=== PATIENT | male | born 1945 | race Caucasian/White ===

== ENCOUNTER 2016-11-14 23:27 | Inpatient (IN) | payer MEDICARE, BC ==
[2016-11-15] MEDS ORDERED: clonazePAM 0.5 MG TAB PO PRN (02:17)
[2016-11-15] MEDS ORDERED: ONDANSETRON 4 MG/2 ML VIAL IVP PRN (02:17)
[2016-11-15] MEDS: MORPHINE SULFATE 2 MG/ML SYRINGE IVP PRN ×3 (04:13→23:31)
[2016-11-15] MEDS: NITROGLYCERIN SL TABS 0.4 MG TAB SUBLINGUAL PRN (04:23)
[2016-11-15] MEDS ORDERED: METOPROLOL SUCCINATE (ER) 100 MG TAB.ER.24H PO STA (04:42)
[2016-11-15] MEDS ORDERED: amLODIPine 10 MG TAB PO STA (04:43)
[2016-11-15 08:14] LABS: Anion Gap 12 mmol/L; Blood Urea Nitrogen 14 mg/dL (9-20); Calcium 8.5 mg/dL (8.4-10.2); Carbon Dioxide 27 mmol/L (22-30); Chloride 108 mmol/L (98-107); Glucose 131 mg/dL (74-99); Non-African American GFR(MDRD) >60 (>60 ml/min/1.73 sqM); Potassium 3.7 mmol/L (3.5-5.1); Sodium 147 mmol/L (137-145)
[2016-11-15 08:27] LABS: Creatine Kinase 41 U/L (55-170)
[2016-11-15 08:39] LABS: Creatine Kinase MB 0.5 ng/mL (0.0-2.4); Troponin I <0.012 ng/mL (0.000-0.034)
[2016-11-15] MEDS: ASPIRIN 81 MG CHEW PO SCH (08:39)
[2016-11-15] MEDS: ESCITALOPRAM 20 MG TAB PO SCH (08:39)
[2016-11-15 09:14] LABS: Basophils # (A) 0.1 k/uL (0-0.2); Basophils % (A) 1 %; CH 35.9; CHCM 35.6; Eosinophils # (A) 0.1 k/uL (0-0.7); Eosinophils % (A) 1 %; HCT 45.7 % (39.0-53.0); HDW 2.59; Luc # (Auto) 0.16; Luc % (Auto) 2; Lymphocytes # (A) 1.6 k/uL (1.0-4.8); Lymphocytes % (A) 21 %; MCH 35.4 pg (25.0-35.0); MCV 101.2 fL (80.0-100.0); Mean Platelet Volume 8.9; Monocytes # (A) 0.4 k/uL (0-1.0); Monocytes % (A) 6 %; Neutrophils # (A) 5.1 k/uL (1.3-7.7); Neutrophils % (A) 69 %; RBC 4.52 m/uL (4.30-5.90); RDW 12.8 % (11.5-15.5); WBC 7.4 k/uL (3.8-10.6); WBC (Perox) 7.33
[2016-11-15] MEDS ORDERED: ALPRAZolam 0.5 MG TAB PO PRN (10:03)
[2016-11-15] MEDS ORDERED: ATORVASTATIN 80 MG TAB PO STA (10:03)
[2016-11-15] MEDS ORDERED: SODIUM CHLORIDE 0.9% 1,000 ML in EMPTY BAG 1 BAG IV ONE (10:03)
[2016-11-15] MEDS ORDERED: ALPRAZolam 0.25 MG TAB PO PRN (10:03)
--- NOTE | 2016-11-15 10:03 | P.CRDCN ---
History of Present Illness Consult date: 11/15/16 History of present illness: This is a 71-year-old gentleman with history of hypertensive coronary vascular disease and a family history of ischemic heart disease who is admitted with recurrent complaints of chest pains. Apparently yesterday 2:00 in the morning, patient woke up from sleep and started having some discomfort in the middle of the chest that lasted about 5-10 minutes. Apparently was slightly nauseated. He found that his blood pressure was very high at the time. He was able to go to sleep and around 9 PM yesterday patient again had similar discomfort and went to the emergency room. He had onset about of chest pain while in the emergency room. His EKG showed a sinus rhythm with evidence of right bundle- branch block and left axis deviation. His cardiac enzymes are negative. Apparently patient had another bout of chest pain this morning which was relieved after giving sublingual nitro and also morphine. At the time of my examination patient seemed to be comfortable though he is complaining of vague mild discomfort. He was advised to have a cardiac catheterization and is being scheduled for tomorrow. I'm going to start him on oral nitrates and continue the current beta charline dosage. We have to watch for any significant bradyarrhythmia because of the conduction system abnormalities. We'll also get an echocardiogram to assess LV function. Further recommendation will depend upon the clinical course. Review of Systems As per the chart Past Medical History Past Medical History: GERD/Reflux, Hypertension Additional Past Medical History / Comment(s): heart arrhythmia History of Any Multi-Drug Resistant Organisms: None Reported Past Surgical History: Hernia Repair Additional Past Surgical History / Comment(s): carpal tunnel surg X2, arm surg on left arm, cataract surg, colon polyp Past Anesthesia/Blood Transfusion Reactions: No Reported Reaction Past Psychological History: Anxiety, Depression Smoking Status: Former smoker Past Alcohol Use History: None Reported Past Drug Use History: None Reported - Past Family History Father Additional Family Medical History / Comment(s): heart problems Mother Family Medical History: No Reported History Medications and Allergies Home Medications Medication Instructions Recorded Confirmed Type Aspirin [Adult Low Dose Aspirin EC] 81 mg PO DAILY 11/15/16 11/15/16 History Escitalopram [Lexapro] 20 mg PO DAILY 11/15/16 11/15/16 History Metoprolol Succinate [Toprol XL] 200 mg PO DAILY 11/15/16 11/15/16 History Omeprazole [PriLOSEC] 20 mg PO AC-BRKFST 11/15/16 11/15/16 History Potassium Chloride ER [K-Dur 20] 20 meq PO BID 11/15/16 11/15/16 History Tamsulosin HCl [Tamsulosin HCl] 0.4 mg PO DAILY 11/15/16 11/15/16 History amLODIPine BESYLATE [Amlodipine 10 mg PO DAILY 11/15/16 11/15/16 History Besylate] clonazePAM [Clonazepam] 0.25 mg PO TID PRN 11/15/16 11/15/16 History Allergies Allergy/AdvReac Type Severity Reaction Status Date / Time No Known Allergies Allergy Verified 11/15/16 08:22 Physical Exam Vitals: Vital Signs Temp Pulse Resp BP Pulse Ox 11/15/16 07:58 99.9 F H 66 18 149/83 96 11/15/16 05:06 154/80 11/15/16 04:00 68 16 200/103 68 L 11/15/16 02:29 16 11/15/16 01:45 67 16 176/89 94 L Intake and Output 11/14/16 11/15/16 11/15/16 22:59 06:59 14:59 Other: Voiding Method Toilet Toilet # Voids 1 Weight 100 kg GENERAL EXAM: Patient is alert and oriented and doesn't appear to be in any acute distress HEENT: Normocephalic. Normal reaction of pupils, equal size, normal range of extraocular motion. No erythema or exudates in the throat. NECK: No masses, no nuchal rigidity. CHEST: No chest wall deformity. LUNGS: Equal air entry with no crackles or wheeze. HEART: S1 and S2 normal with no audible mumurs or gallops. Regular rhythm, femorals equal on both sides.. ABDOMEN: No hepatosplenomegaly, normal bowel sounds, no guarding or rigidity. SKIN: No rashes CENTRAL NERVOUS SYSTEM: No focal deficits. EXTREMITIES: No cyanosis, clubbing or edema. Results 11/15/16 07:31 11/15/16 07:31 Cardiac Enzymes 11/15/16 Range/Units 07:31 CK-MB (CK-2) 0.5 (0.0-2.4) ng/mL Troponin I <0.012 (0.000-0.034) ng/mL CBC 11/15/16 Range/Units 07:31 WBC 7.4 (3.8-10.6) k/uL RBC 4.52 (4.30-5.90) m/uL Hgb 16.0 (13.0-17.5) gm/dL Hct 45.7 (39.0-53.0) % Plt Count 102 L (150-450) k/uL Comprehensive Metabolic Panel 11/15/16 Range/Units 07:31 Sodium 147 H (137-145) mmol/L Potassium 3.7 (3.5-5.1) mmol/L Chloride 108 H (98-107) mmol/L Carbon Dioxide 27 (22-30) mmol/L BUN 14 (9-20) mg/dL Creatinine 0.67 (0.66-1.25) mg/dL Glucose 131 H (74-99) mg/dL Calcium 8.5 (8.4-10.2) mg/dL Current Medications Generic Name Dose Route Start Last Admin Trade Name Freq PRN Reason Stop Dose Admin Amlodipine Besylate 10 mg 11/15/16 09:00 Norvasc PO DAILY [facility] Aspirin 81 mg 11/15/16 09:00 11/15/16 08:39 Aspirin PO 81 mg DAILY [facility] Administration Clonazepam 0.5 mg 11/15/16 02:17 Klonopin PO TID PRN Anxiety Escitalopram Oxalate 20 mg 11/15/16 09:00 11/15/16 08:39 Lexapro PO 20 mg DAILY [facility] Administration Metoprolol Succinate 200 mg 11/15/16 09:00 Toprol Xl PO DAILY [facility] Morphine Sulfate 2 mg 11/15/16 02:17 11/15/16 04:13 Morphine Sulfate (Inj) IVP 2 mg Q4H PRN Administration Pain/Discomfort Nitroglycerin 0.4 mg 11/15/16 02:16 11/15/16 04:23 Nitrostat SUBLINGUAL 0.4 mg Q5M PRN Administration Chest Pain Ondansetron HCl 4 mg 11/15/16 02:17 Zofran IVP Q6HR PRN Nausea And Vomiting Pantoprazole Sodium 40 mg 11/15/16 07:30 Protonix PO AC-BRKFST [facility] Potassium Chloride 20 meq 11/15/16 09:00 K-Dur 20 PO BID [facility] Tamsulosin HCl 0.4 mg 11/15/16 09:00 Flomax PO DAILY [facility] Intake and Output 11/14/16 11/15/16 11/15/16 22:59 06:59 14:59 Other: Voiding Method Toilet Toilet # Voids 1 Weight 100 kg 11/15/16 07:31 11/15/16 07:31 EKG Interpretations (text) Sinus rhythm with evidence of right bundle-branch block and left axis deviation. Assessment and Plan (1) Recurrent chest pain Status: Acute (2) Hypertension Status: Acute (3) GERD (gastroesophageal reflux disease) Status: Acute Plan: Patient is having recurrent chest pains which apparently is relieved with nitroglycerin last night. He does have risk factors of hypertension and family history. Patient is advised to have a cardiac catheterization for definitive diagnosis. This is being scheduled with Dr. Beltran to be done tomorrow. Meanwhile we'll also obtain an echocardiogram.
[2016-11-15] MEDS: amLODIPine 10 MG TAB PO SCH (10:21)
[2016-11-15] MEDS: PANTOPRAZOLE 40 MG TABLET PO SCH (10:21)
[2016-11-15] MEDS: TAMSULOSIN 0.4 MG CAP.ER.24H PO SCH (10:21)
[2016-11-15] MEDS: POTASSIUM CHLORIDE ER 20 MEQ TAB.ER PO SCH ×2 (10:22→21:51)
[2016-11-15] MEDS: METOPROLOL SUCCINATE (ER) 100 MG TAB.ER.24H PO SCH (10:22)
[2016-11-15] MEDS: ISOSORBIDE MONONITRATE ER 60 MG TAB.ER.24H PO SCH (10:36)
[2016-11-15 14:32] LABS: Creatine Kinase 49 U/L (55-170)
[2016-11-15 14:43] LABS: Creatine Kinase MB 0.6 ng/mL (0.0-2.4); Troponin I <0.012 ng/mL (0.000-0.034)
--- NOTE | 2016-11-15 21:30 | HP ---
DATE OF ADMISSION: 11/15/2016 CHIEF COMPLAINT: Chest pain. HISTORY OF ILLNESS: Mr. Jaquez is a 71-year-old male with a known history of hypertension and cardiac arrhythmia, status post ablation, and a family history of ischemic heart disease. He came to the hospital with complaints of chest pain. Patient initially presented to [facility], where he had lab data and chest x-ray done which were within normal limits. The patient was subsequently sent to [facility] for further evaluation by Cardiology. Apparently patient was at work in the morning and was walking to the kitchen and suddenly felt chest tightness and pain in the midsternal region associated with nausea. No radiation. Patient felt dizzy and had to sit down due to pain. He was able to go to sleep and around 9 p.m. yesterday patient again had similar discomfort and went to the emergency room at [facility]. EKG showed right bundle branch block and left axis deviation with sinus rhythm. Cardiac enzymes were negative. Patient denies any complaints of chest pain now. Patient's chest pain was relieved with nitroglycerin. No nausea, vomiting. No recent illnesses. No sick contacts. No recent travel. Cardiology is planning for cardiac catheterization tomorrow. REVIEW OF SYSTEMS: CONSTITUTIONAL: No fever. No chills. RESPIRATORY: No cough or sputum production. CARDIOVASCULAR: No chest pain or shortness of breath. ABDOMEN: No nausea, vomiting or abdominal pain. GENITOURINARY: Negative. ENDOCRINE: Negative. PSYCHIATRY: Negative. SKIN: Negative. MUSCULOSKELETAL: Negative. All other 14-point review of systems negative except as above. Patient denied any orthopnea or PND. PAST MEDICAL HISTORY: 1. GERD. 2. Hypertension. 3. Cardiac arrhythmia. PAST SURGICAL HISTORY: 1. Hernia repair. 2. Cardiac ablation. 3. Cataract surgery. 4. Carpal tunnel surgery. 5. Arm surgery on left arm. PSYCHOSOCIAL HISTORY: Anxiety and depression. SOCIAL HISTORY: Patient was never a smoker. Denied alcohol. Denied any drugs or IVDU. FAMILY HISTORY: Father had heart problems. All the family members on his father' side have hypertension and heart problems. Home medications include: 1. Aspirin. 2. Lexapro. 3. Toprol XL. 4. Omeprazole. 5. Potassium chloride. 6. Tamsulosin. 7. Amlodipine. 8. Clonazepam. ALLERGIES: NO KNOWN DRUG ALLERGIES. PHYSICAL EXAMINATION: A 71-year-old male lying in bed comfortably. Awake, alert, oriented x3. No apparent distress. VITALS: Blood pressure 149/83. Pulse is 66, respiration 18, temperature afebrile, pulse ox 96% on room air. HEENT: Atraumatic, normocephalic. Neck is supple. No JVD. CVS EXAM: S1, S2 heard. No murmurs. No gallop. No rub. LUNGS: Bilateral air entry is present. No wheezing. No crackles. Non-labored breathing. ABDOMEN: Soft, nontender. Bowel sounds are present. SPRING INSPECTOR: Awake, alert, oriented x3. No focal neurologic deficit. Cranial nerves grossly intact. EXTREMITIES: No edema. Pulses palpable bilaterally. No clubbing or cyanosis. PSYCHIATRIC: Cooperative. LABORATORY DATA: WBC 7.4, hemoglobin 16.0, MCV 101.2, platelets 102. Sodium 147, potassium 3.7, chloride 108. Bicarb is 27. BUN 14, creatinine 0.67. CK level is 49. Troponin x2 negative. Chest x-ray at [facility] was negative. EKG showed right bundle branch block and left axis deviation and sinus rhythm. IMPRESSION: 1. Chest pain/angina. Patient had 2 episodes of chest pain since yesterday. Will continue the serial EKGs and troponins. Cardiology is planning for cardiac catheterization tomorrow. 2. Hypertension. 3. History of cardiac arrhythmia, status post ablation, as per the patient. 4. Gastroesophageal reflux disease. DISCUSSION AND PLAN: Ixoxzyi[age]qacke[age]-old male admitted to the hospital with complaints of chest pain/angina. Troponins are negative. EKG showed right bundle branch block and normal sinus rhythm. Will continue the telemetry monitoring and serial EKGs and troponins. Cardiology recommended cardiac catheterization tomorrow. Continue current management. Further recommendations based on the clinical course.
[2016-11-16] MEDS: MORPHINE SULFATE 2 MG/ML SYRINGE IVP PRN ×2 (03:15→06:45)
[2016-11-16] MEDS: POTASSIUM CHLORIDE ER 20 MEQ TAB.ER PO SCH ×2 (06:40→21:43)
[2016-11-16] MEDS: PANTOPRAZOLE 40 MG TABLET PO SCH (06:41)
[2016-11-16] MEDS: ISOSORBIDE MONONITRATE ER 60 MG TAB.ER.24H PO SCH (06:41)
[2016-11-16] MEDS: ASPIRIN 81 MG CHEW PO SCH (06:42)
[2016-11-16] MEDS: amLODIPine 10 MG TAB PO SCH (06:42)
[2016-11-16] MEDS: METOPROLOL SUCCINATE (ER) 100 MG TAB.ER.24H PO SCH (06:42)
[2016-11-16] MEDS: ESCITALOPRAM 20 MG TAB PO SCH (06:43)
[2016-11-16] MEDS: NITROGLYCERIN SL TABS 0.4 MG TAB SUBLINGUAL PRN ×4 (08:14→13:55)
[2016-11-16] MEDS ORDERED: LIDOCAINE 2% INJ 20 MG/ML (20 ML MDV) ONE (09:32)
[2016-11-16] MEDS ORDERED: diphenhydrAMINE 50 MG/ML 1 ML VIAL ONE (09:32)
[2016-11-16] MEDS ORDERED: SODIUM CHLORIDE 0.9% (PF) 10 ML VIAL ONE (09:32)
[2016-11-16] MEDS ORDERED: HEPARIN SODIUM 1,000 UNIT/ML VIAL ONE (09:32)
[2016-11-16] MEDS ORDERED: MIDAZOLAM 2 MG/2 ML VIAL ONE ×3 (09:32→15:25)
[2016-11-16] MEDS ORDERED: VERAPAMIL 2.5 MG/ML 2 ML AMP ONE (09:32)
[2016-11-16] MEDS ORDERED: diphenhydrAMINE 50 MG/ML 1 ML VIAL IVP ONE (09:38)
[2016-11-16] MEDS ORDERED: MIDAZOLAM 2 MG/2 ML VIAL IV ONE ×2 (09:39→10:46)
[2016-11-16] MEDS: LIDOCAINE 2% INJ 20 MG/ML SQ ONE ×2 (09:41→10:02)
[2016-11-16] MEDS ORDERED: VERAPAMIL SYRINGE (5 MG/10 ML) INTRAARTER ONE (09:42)
[2016-11-16] MEDS ORDERED: BIVALIRUDIN BOLUS 250 MG/50 ML IV ONE ×2 (10:16→14:32)
[2016-11-16] MEDS ORDERED: BIVALIRUDIN 250 MG in SODIUM CHLORIDE 0.9% 50 ML IV ONE ×4 (10:16→15:29)
[2016-11-16] MEDS ORDERED: HYDROmorphone 2 MG/ML 1 ML SYRINGE ONE (10:32)
[2016-11-16] MEDS ORDERED: HYDROmorphone 2 MG/ML 1 ML SYRINGE IV ONE ×2 (10:34)
[2016-11-16] MEDS ORDERED: fentaNYL (PF) 50 MCG/ML 2 ML AMP ONE (10:56)
[2016-11-16] MEDS ORDERED: fentaNYL (PF) 50 MCG/ML 2 ML AMP IV ONE ×3 (10:56→16:44)
[2016-11-16] MEDS ORDERED: NITROGLYCERIN 1000MCG/10ML SYRINGE INTRACORON ONE ×2 (10:57→15:45)
[2016-11-16] MEDS ORDERED: CLOPIDOGREL 75 MG TAB ONE (11:02)
[2016-11-16] MEDS ORDERED: FLUMAZENIL 0.1 MG/ML 5 ML VIAL IVP ONE (11:15)
[2016-11-16] MEDS: FLUMAZENIL 0.1 MG/ML 5 ML VIAL IVP ONE ×2 (11:16→11:23)
[2016-11-16] MEDS ORDERED: ZOLPIDEM 5 MG TAB PO PRN ×2 (11:17→16:28)
[2016-11-16] MEDS ORDERED: MAG HYDROX/AL HYDROX/SIMETH 30 ML CUP PO PRN ×2 (11:17→16:28)
[2016-11-16] MEDS ORDERED: RX INFO: IV CONTRAST WAS GIVEN 1 EACH MISC MISCELLANE PRN ×2 (11:17→16:28)
[2016-11-16] MEDS ORDERED: NITROGLYCERIN SL TABS 0.4 MG TAB SUBLINGUAL PRN ×2 (11:17→16:28)
[2016-11-16] MEDS ORDERED: CLOPIDOGREL 75 MG TAB PO ONE (11:25)
[2016-11-16] MEDS ORDERED: IOHEXOL 350 MG/ML 100 ML BOTTLE INJ ONE (11:26)
[2016-11-16] MEDS ORDERED: SODIUM CHLORIDE 0.9% 1,000 ML IV SCH ×2 (11:30→16:30)
[2016-11-16] MEDS ORDERED: hydrALAZINE HCL 20 MG/ML 1 ML VIAL IV ONE (11:33)
[2016-11-16] MEDS ORDERED: hydrALAZINE HCL 20 MG/ML 1 ML VIAL ONE (11:38)
[2016-11-16] MEDS: TAMSULOSIN 0.4 MG CAP.ER.24H PO SCH (14:08)
[2016-11-16] MEDS ORDERED: IV FLUID CONTINUATION 1,000 ML IV ONE (14:17)
--- NOTE | 2016-11-16 14:18 | XR ---
EXAMINATION TYPE: XR chest 1V portable DATE OF EXAM: 11/16/2016 2:08 PM HISTORY: Chest pain. REFERENCE: NONE. FINDINGS: The entire chest is not included on this study. The heart is mildly enlarged. There is vascular congestion without melva edema. There is blunting of the left CP angle. I could not exclude a small effusion. IMPRESSION: 1. SUBOPTIMAL STUDY. 2. MILD CARDIOMEGALY. 3. I CANNOT EXCLUDE A SMALL LEFT EFFUSION.
[2016-11-16] MEDS ORDERED: LIDOCAINE 2% INJ 20 MG/ML SQ ONE (14:19)
[2016-11-16] MEDS ORDERED: FUROSEMIDE 10 MG/ML 4 ML VIAL IV ONE (14:49)
[2016-11-16] MEDS ORDERED: ETOMIDATE 2 MG/ML 10 ML VIAL ONE (15:25)
[2016-11-16] MEDS ORDERED: SUCCINYLCHOLINE CHLORIDE 100 MG/5 ML SYR IV ONE (15:25)
[2016-11-16] MEDS ORDERED: ROCURONIUM BROMIDE 10 MG/ML 10 ML VIAL IV ONE (15:25)
[2016-11-16] MEDS ORDERED: NOREPINEPHRINE 4 MG in SODIUM CHLORIDE 0.9% 250 ML IV ONE (15:27)
[2016-11-16] MEDS: MIDAZOLAM 2 MG/2 ML VIAL IV ONE ×2 (16:21→16:38)
[2016-11-16] MEDS ORDERED: TIROFIBAN BOLUS 12.5MG/250 ML BAG IV ONE (16:40)
[2016-11-16] MEDS ORDERED: TIROFIBAN 12.5MG-250ML NS 250 ML IV ONE (16:43)
[2016-11-16] MEDS ORDERED: IODIXANOL 320 MG/ML 100 ML INTRAARTER ONE (16:55)
[2016-11-16] MEDS ORDERED: MIDAZOLAM 2 MG/2 ML VIAL IVP ONE (17:21)
[2016-11-16] MEDS ORDERED: PROPOFOL 50 ML IV ONE ×2 (17:25→18:43)
[2016-11-16 17:38] LABS: Glucose,Whole Blood 209 mg/dL (75-99)
[2016-11-16] MEDS ORDERED: PRASUGREL 10 MG TAB PO ONE (17:40)
[2016-11-16] MEDS ORDERED: NOREPINEPHRINE 4 MG-0.9% NS PMX 250 ML IV ONE (17:42)
[2016-11-16] MEDS: INSULIN LISPRO (humaLOG) 300 UNIT/3 ML VIAL SQ SCH ×2 (18:32→23:58)
--- NOTE | 2016-11-16 18:41 | XR ---
EXAMINATION TYPE: XR chest 1V portable DATE OF EXAM: 11/16/2016 6:27 PM COMPARISON: Today HISTORY: Intubation TECHNIQUE: Single frontal view of the chest is obtained. FINDINGS: There is endotracheal tube with the tip 2 cm from the erick. Nasogastric tube appears in good position. There is some pulmonary vascular congestion. Heart is enlarged. Trachea is midline. Th ere is slight blunting of left costophrenic angle. IMPRESSION: Endotracheal tube is in fairly good position and could be pulled back 1 cm. There is pul monary vascular congestion that appears increased slightly compared to exam earlier today and consist ent with some degree of CHF.
[2016-11-16 18:43] LABS: ABG HCO3 23 mmol/L (21-25); ABG PCO2 45 mmHg (35-45); ABG PH 7.33 (7.35-7.45); ABG PO2 76 mmHg (83-108); ABG TCO2 25 mmol/L (19-24)
[2016-11-16] MEDS ORDERED: DOPamine DRIP 500 ML IV ONE (19:08)
[2016-11-16] MEDS: IPRATROPIUM 0.5 MG/2.5 ML NEBU INHALATION SCH ×2 (19:28→23:18)
[2016-11-16] MEDS: LEVALBUTEROL NEB (CONC) 1.25 MG/0.5 ML AMP INHALATION SCH ×2 (19:28→23:18)
[2016-11-16 20:33] LABS: Hemoglobin A1C 5.7 % (4.2-6.1)
[2016-11-16 20:59] LABS: Anion Gap 10 mmol/L; Blood Urea Nitrogen 20 mg/dL (9-20); Calcium 7.9 mg/dL (8.4-10.2); Carbon Dioxide 27 mmol/L (22-30); Chloride 108 mmol/L (98-107); Glucose 164 mg/dL (74-99); Non-African American GFR(MDRD) >60 (>60 ml/min/1.73 sqM); Sodium 145 mmol/L (137-145)
[2016-11-16 21:09] LABS: Appearance,Urine Clear (Clear); Bacteria,Urine Rare /hpf; Bilirubin,Urine Negative (Negative); Glucose,Urine (UA) Negative (Negative); Ketones,Urine Negative (Negative); Leukocyte Esterase,Urine Negative (Negative); Mucus,Urine Rare /hpf; Nitrite,Urine Negative (Negative); PH, Urine 6.5 (5.0-8.0); Particle Count 3651; Protein,Urine Trace (Negative); RBC,Urine 45 /hpf (0-5); Squamous Epithelial Cell,Urine <1 /hpf (0-4); UA Billing (MACRO vs. MICRO) MICRO; Urobilinogen,Urine <2.0 mg/dL (<2.0); WBC,Urine 4 /hpf (0-5)
[2016-11-16 21:27] LABS: ABG PCO2 42 mmHg (35-45); ABG PH 7.37 (7.35-7.45)
[2016-11-16 21:28] LABS: ABG Base Excess -0.8 mmol/L; ABG HCO3 24 mmol/L (21-25); ABG Oxygen Saturation 95.4 % (94-97); ABG PO2 80 mmHg (83-108); ABG TCO2 25 mmol/L (19-24)
[2016-11-16] MEDS: ATORVASTATIN 80 MG TAB PO SCH (21:43)
[2016-11-16] MEDS: CHLORHEXIDINE GLUCONATE 15 ML CUP MUCOUS MEM SCH (21:43)
[2016-11-16] MEDS: PROPOFOL 500 MG in EMPTY BAG 1 BAG IV SCH (21:44)
[2016-11-16] MEDS: NOREPINEPHRINE 4 MG in SODIUM CHLORIDE 0.9% 250 ML IV SCH (22:05)
--- NOTE | 2016-11-16 22:58 | CC ---
PERFORMING PHYSICIAN: Bijan Holliday M.D., deputy county counsel. PROCEDURES PERFORMED: 1. Selective right and left coronary angiogram. 2. Successful stenting of the proximal left anterior descending artery using 2.5 x 15-mm Promus Premier drug-eluting stent with a good angiographic result. INDICATION: This is a pleasant 71-year-old gentleman who presented to the hospital with chest discomfort concerning for angina. He underwent a heart catheterization and was found to have critical disease involving the proximal LAD. APPROACH: 1. Right radial artery. 2. Right common femoral artery. COMPLICATIONS: None. LEVEL OF SEDATION: Moderate. PROCEDURE DESCRIPTION: After obtaining informed consent, the patient was brought to the cardiac analytical lab analyst. Initially, the right radial artery was cannulated using micropuncture technique. Micropuncture wire passed easily. Then I placed a 6 Yemeni sheath in the right radial artery. Subsequently, I tried to access in the ascending aorta, but in view of the severe right subclavian tortuosity, I was unable to push the catheter down there, so I decided to abort the radial approach and access the right common femoral artery. The right common femoral artery was cannulated using micropuncture technique. Micropuncture wire passed easily. Then I placed a 6 Yemeni sheath in the right common femoral artery. Subsequently I did selective right and left coronary angiogram using JR4 and JL3.5 5-Yemeni systems. Then I decided to intervene on the LAD. Please see separate paragraph for that. SELECTIVE CORONARY ANGIOGRAM: 1. The right coronary artery is a large-caliber vessel, a dominant vessel. The RCA has mild disease only in the midportion and bifurcates into PDA and PLV branches; both are angiographically normal. 2. The left main is angiographically normal. It bifurcates into the left circumflex and left anterior descending artery. 3. The left circumflex is a large-caliber vessel and it is a nondominant vessel. The proximal left circumflex is angiographically normal and gives rises into a very high takeoff first obtuse marginal branch, which appeared to be angiographically normally. The mid left circumflex is normal and gives rise into the second OM branch, which appeared to be angiographically normal. The left circumflex continues in the AV groove angiographically normal. 4. Left anterior descending artery. The proximal LAD appeared to have eccentric, complex and critical lesion by the bifurcation of the first and second diagonal branches. This lesion appeared to be in the range of 90% to 95%. The mid LAD and distal LAD appeared to have mild disease only. PERCUTANEOUS INTERVENTION OF THE LEFT ANTERIOR DESCENDING ARTERY: Anticoagulation was initiated using Angiomax. Subsequently, I did engage the left main using an XP35 LAD guide. Initially, I tried to advance a Whisper wire, but I was unable to make the wire turning toward the LAD and the wire every time was going toward the second diagonal branch. At that point, I did use a small catheter with angulated tip and that was helpful in term of pointing my Whisper wire toward the LAD. Subsequently, I did balloon the LAD using 2.0 x 12-mm balloon. Then I deployed 2.5 x 16-mm Promus Premier drug-eluting stent, where the stent was positioned under fluoroscopy guidance and deployed under 14 atmospheres for 20 seconds. Then I postdilated using 2.75-mm noncompliant balloon, which was inflated under 18 atmospheres for 20 seconds. The following angiogram showed a good angiographic result. CONCLUSION: 1. Critical disease involving the proximal left anterior descending artery. 2. Successful stenting of the proximal left anterior descending artery using 2.5 x 16-mm Promus Premier drug-eluting stent with a good angiographic result. POSTPROCEDURE MANAGEMENT: 1. Dual antiplatelet therapy. 2. Risk factor modifications. 3. Follow up with the patient.
[2016-11-16 23:39] LABS: Glucose,Whole Blood 116 mg/dL (75-99)
[2016-11-17] MEDS: PROPOFOL 500 MG in EMPTY BAG 1 BAG IV SCH ×8 (01:12→22:49)
[2016-11-17] MEDS ORDERED: TIROFIBAN 12.5MG-250ML NS 250 ML IV SCH (01:45)
[2016-11-17] MEDS: LEVALBUTEROL NEB (CONC) 1.25 MG/0.5 ML AMP INHALATION SCH ×6 (03:02→23:19)
[2016-11-17] MEDS: IPRATROPIUM 0.5 MG/2.5 ML NEBU INHALATION SCH ×6 (03:02→23:19)
[2016-11-17 05:10] LABS: Ionized Calcium 4.9 mg/dL (4.5-5.3)
[2016-11-17 05:11] LABS: Basophils % (A) 0 %; CH 35.8; CHCM 35.3; Eosinophils % (A) 0 %; HCT 37.8 % (39.0-53.0); HDW 2.65; HGB 13.1 gm/dL (13.0-17.5); Luc # (Auto) 0.22; Luc % (Auto) 2; Lymphocytes % (A) 11 %; MCH 35.3 pg (25.0-35.0); MCHC 34.7 g/dL (31.0-37.0); MCV 101.9 fL (80.0-100.0); Macrocytosis Slight; Mean Platelet Volume 9.7; Monocytes # (A) 0.9 k/uL (0-1.0); Monocytes % (A) 9 %; Neutrophils # (A) 7.3 k/uL (1.3-7.7); Neutrophils % (A) 78 %; RBC 3.71 m/uL (4.30-5.90); RDW 13.1 % (11.5-15.5); WBC 9.4 k/uL (3.8-10.6); WBC (Perox) 9.63
[2016-11-17 05:15] LABS: ABG Base Excess -1.1 mmol/L; ABG HCO3 23 mmol/L (21-25); ABG PCO2 37 mmHg (35-45); ABG PH 7.41 (7.35-7.45); ABG PO2 106 mmHg (83-108); ABG TCO2 24 mmol/L (19-24)
[2016-11-17 05:20] LABS: Anion Gap 9 mmol/L; Blood Urea Nitrogen 21 mg/dL (9-20); Calcium 8.1 mg/dL (8.4-10.2); Carbon Dioxide 27 mmol/L (22-30); Chloride 111 mmol/L (98-107); Glucose 144 mg/dL (74-99); Non-African American GFR(MDRD) >60 (>60 ml/min/1.73 sqM); Phosphorous 3.9 mg/dL (2.5-4.5); Sodium 147 mmol/L (137-145)
[2016-11-17 05:30] LABS: Manual Review Performed
[2016-11-17 06:13] LABS: Glucose,Whole Blood 145 mg/dL (75-99)
[2016-11-17] MEDS: INSULIN LISPRO (humaLOG) 300 UNIT/3 ML VIAL SQ SCH ×3 (06:14→18:53)
--- NOTE | 2016-11-17 08:15 | XR ---
EXAMINATION TYPE: XR chest 1V portable DATE OF EXAM: 11/17/2016 6:33 AM Comparison: 11/16/2016 Clinical History: 71 year-old male tube placement Findings: ET tube is satisfactory. NG tube courses below the diaphragm. Heart remains mildly enlarged. Bilatera l hilar prominence is redemonstrated and could represent underlying pulmonary arterial hypertension. Interstitial opacities and indistinctness of the pulmonary vasculature persists but there is improvin g aeration relative to prior. Blunted left costophrenic angle and retrocardiac opacity is similar. Impression: 1. Findings suggest persistent but improving CHF with pulmonary vascular congestion/interstitial ed ma. 2. Trace left pleural effusion with adjacent retrocardiac atelectasis or consolidation.
[2016-11-17] MEDS: CHLORHEXIDINE GLUCONATE 15 ML CUP MUCOUS MEM SCH ×2 (08:39→20:25)
[2016-11-17] MEDS: amLODIPine 10 MG TAB PO SCH (08:39)
[2016-11-17] MEDS: ESCITALOPRAM 20 MG TAB PO SCH (08:39)
[2016-11-17] MEDS: PANTOPRAZOLE 40 MG TABLET PO SCH (08:40)
[2016-11-17] MEDS: TAMSULOSIN 0.4 MG CAP.ER.24H PO SCH (08:40)
[2016-11-17] MEDS: ISOSORBIDE MONONITRATE ER 60 MG TAB.ER.24H PO SCH (08:40)
[2016-11-17] MEDS ORDERED: CLOPIDOGREL 75 MG TAB PO SCH (09:00)
[2016-11-17] MEDS: PRASUGREL 10 MG TAB PO SCH (09:52)
[2016-11-17] MEDS: ASPIRIN 81 MG CHEW PO SCH (09:52)
[2016-11-17] MEDS: METOPROLOL SUCCINATE (ER) 100 MG TAB.ER.24H PO SCH (10:09)
[2016-11-17] MEDS: POTASSIUM CHLORIDE ER 20 MEQ TAB.ER PO SCH ×2 (10:10→20:25)
--- NOTE | 2016-11-17 10:30 | CC ---
DATE OF SERVICE: PERFORMING PHYSICIAN: Bijan Holliday MD, marking machine tender. PROCEDURE PERFORMED: 1. Selective left coronary angiogram. 2. Successful stenting of the proximal left anterior descending artery using a 3.0 x 18 mm Xience GUDELIA which was post dilated using a 3.25 mm NC balloon with a good angiographic results. 3. Aspiration thrombectomy from the left anterior descending artery. INDICATION: This is 71-year-old gentleman who presented to the hospital 2 days ago with chest discomfort concerning for angina. Earlier today, he underwent a heart catheterization and was found to have critical disease involving the proximal LAD, which was stented using Promus Premiere drug-eluting stent with a good angiographic results. Later in the next few hours he developed chest discomfort and ST elevation in the inferior leads and he was brought today to undergo a heart catheterization and to check on the stent. APPROACH: Left common femoral artery. COMPLICATIONS: None. LEVEL OF SEDATION: Moderate. PROCEDURE DESCRIPTION: After obtaining informed consent, the patient was brought to the cardiac carpenter/labor. The left common femoral artery was cannulated using micropuncture technique. The micropuncture wire passed easily. Then I placed a 6 Guamanian sheath in the left common femoral artery. Subsequently, I did selective left coronary angiogram using JL4 diagnostic catheter. At that point when I found to be acute stent thrombosis I went with JL 4 guiding catheter. SELECTIVE CORONARY ANGIOGRAM: 1. The left main is angiographically normal. It bifurcates into the left circumflex and left anterior descending artery. 2. The left circumflex is a large-caliber vessel and it is a nondominant vessel. The proximal left circumflex is normal and gives rises into the first obtuse marginal branch, which has a high takeoff and works as ramus, seems to be angiographically normal. The mid left circumflex is normal and gives rises into the second OM, which seems to be angiographically normal and the circ continues after that as a small to medium caliber vessel in the AV groove. 3. Left anterior descending coronary artery: The proximal LAD is stented with acute stent thrombosis. PCI OF THE LAD: Anticoagulation was initiated using Angiomax. This time I took JL4 diagnostic guiding catheter and the left main was engaged. I tried to wire the left anterior descending artery using a whisper wire, but the whisper wire was going behind the stent struts and I was unable to advance the wire to the mid to distal LAD. At that point, I took choice PT wire with the back-up support of a small catheter, which has 45 degrees angle and I was able to direct my wire to the distal LAD across the stent. Subsequently, I did PTCA ballooning using 2.0 x 12 mm balloon which was inflated multiple times inside the stent in the proximal LAD. After that, I did deploy a 3.0 x 18 mm Xience GUDELIA in the proximal LAD where the stent was positioned under fluoroscopy guidance, then it was deployed under its nominal pressure. Subsequently, I postdilated using 3.25 x 8 mm balloon which was inflated inside the stent 3 times under 20, 18, and 16 atmospheres. Subsequently, I did aspiration thrombectomy from stent in the proximal LAD because I was suspecting a clot right there. The final angiogram showed good angiographic results. CONCLUSION: 1. Acute stent thrombosis involving the stent in the proximal LAD. 2. Successful restenting of the LAD using 3.0 x 18 mm Xience GUDELIA which was postdilated using 3.25 mm noncompliant balloon with a good angiographic results. POSTPROCEDURE MANAGEMENT: 1. Dual antiplatelet therapy. At this time I am going to use Effient instead of Plavix. 2. Risk factor modifications. 3. Will follow up with the patient.
--- NOTE | 2016-11-17 10:43 | PN ---
DATE OF SERVICE: 11/16/2016 This 71-year-old gentleman who was admitted with acute non-ST segment myocardial infarction also had a history of cardiac arrhythmia. The patient underwent a cardiac catheterization, LAD stenting. The patient had a stent thrombosis. The patient had to be taken back to the cardiac cath and restenting was done by Dr. Holliday which was successful but the patient had difficulties and had some hypotension also. The patient has to be intubated and the patient is on Effient. The patient's also the patient being closely monitored in the ICU at this time. Dr. Ortiz has helped in inserting NG tube at this time. PAST MEDICAL HISTORY: Reviewed. REVIEW OF SYSTEMS: Could not be taken. The patient mechanically ventilated. Current medications are reviewed and include: 1. Maalox q.4 p.r.n. 2. Xanax 0.25 mg p.r.n. 3. Norvasc. 4. Lipitor. 5. Peridex b.i.d. 6. Klonopin. 7. Lexapro 20 mg. 8. Humalog. 9. Xopenex. 10. Toprol-XL. 11. Morphine sulfate. 12. Protonix. 13. K-Dur. 14. Flomax. 15. Ambien. PHYSICAL EXAMINATION: The patient is mechanically ventilated and sedated. Pulse 64, blood pressure 106/78, respirations 18, temperature normal, pulse ox 100% on assist control 50% FIO2, 5 of PEEP. HEENT: Conjunctivae normal. Oral mucosa moist. NECK: No jugular venous distention. No carotid bruit. CARDIOVASCULAR: S1, S2 muffled. No S3, no S4. RESPIRATORY: Breath sounds diminished at the bases. No rhonchi. No crackles. The patient is mechanically ventilated. ABDOMEN: Soft, nontender. No mass palpable. LEGS: No edema. No swelling. CENTRAL NERVOUS SYSTEM: The patient is mechanically ventilated and sedated. SKIN: No ulcer, rash or bleeding. LABS: WBC 7.4. MCV 101, ABGs noted. Sodium 147. Other labs are noted. Troponins are negative. ASSESSMENT: 1. Acute coronary syndrome with unstable angina, status post cardiac catheterization and stenting of the left anterior descending with in-stent restenosis and as well as restenting. 2. Acute respiratory hypoxic respiratory failure on mechanical ventilation. 3. Hypotension with cardiogenic shock on pressor support. 4. Hypertension history. 5. History of cardiac arrhythmias. 6. History of gastroesophageal reflux disease. 7. Increased MCV. 8. Thrombocytopenia. 9. Hypernatremia. 10. Increased random blood sugar. 11. History of gastrointestinal bleed. 12. History of anxiety and depression. 13. Remote history of nicotine dependence. 14. FULL CODE. RECOMMENDATIONS AND DISCUSSION: In this 71-year-old gentleman who presented with multiple complex medical issues, we will monitor the patient closely, continue the current medications, continue symptomatic treatment. Continue the bronchodilators. Continue with the monitoring beta blockers and antiplatelet agents. Closely follow with cardiology. Guarded prognosis. Effient has been initiated. Guarded prognosis because of multiple complex medical issues. Further recommendations to follow. MTDD
--- NOTE | 2016-11-17 11:58 | P.CNPUL ---
History of Present Illness Consult date: 11/17/16 Requesting physician: Rj Danielson Reason for consult: other (Ventilator/critical care management) Chief complaint: Chest pain History of present illness: This is a 71-year-old gentleman with a known history of atrial fibrillation status post ablation, hypertension, stroke esophageal reflux disease, depression. He presented here as a transfer from [facility] following complaints of chest pain. He had undergone cardiac catheterization by Dr. Beltran via right radial approach. He is found to have significant stenosis in the proximal LAD and a stent was placed. He was initially on the selective care unit following the procedure. Later that same day he developed recurrent chest pain and ST segment elevation. He was taken back to the [facility] and was found to have in-stent restenosis. He had undergone her repeat stenting of the proximal LAD and aspiration thrombectomy. During the procedure he developed significant hypotension and respiratory distress and was intubated while in the cardiac catheterization lab. He remained intubated and on the mechanical ventilator. He is seen today in the intensive care unit in consultation. He was given a sedation holiday however he developed significant restlessness, tachycardia and hypoxia. His current vent settings are assist controlled mode with rate of 18, tidal volume of 450, FiO2 80% and a PEEP of 5. Blood gases reveal pO2 of 106, pCO2 37, pH 7.41 100% FiO2. He remains sedated with propofol currently at 25 mcg/kg/m. Levophed has been weaned off. His chest x- ray reveals some atelectasis in the left base. Review of Systems ROS unobtainable: due to endotracheal tube Past Medical History Past Medical History: GERD/Reflux, Hypertension Additional Past Medical History / Comment(s): heart arrhythmia History of Any Multi-Drug Resistant Organisms: None Reported Past Surgical History: Hernia Repair Additional Past Surgical History / Comment(s): carpal tunnel surg X2, arm surg on left arm, cataract surg, colon polyp Past Anesthesia/Blood Transfusion Reactions: No Reported Reaction Past Psychological History: Anxiety, Depression Smoking Status: Former smoker Past Alcohol Use History: None Reported Past Drug Use History: None Reported - Past Family History Father Additional Family Medical History / Comment(s): heart problems Mother Family Medical History: No Reported History Medications and Allergies Home Medications Medication Instructions Recorded Confirmed Type Aspirin [Adult Low Dose Aspirin EC] 81 mg PO DAILY 11/15/16 11/15/16 History Escitalopram [Lexapro] 20 mg PO DAILY 11/15/16 11/15/16 History Metoprolol Succinate [Toprol XL] 200 mg PO DAILY 11/15/16 11/15/16 History Omeprazole [PriLOSEC] 20 mg PO AC-BRKFST 11/15/16 11/15/16 History Potassium Chloride ER [K-Dur 20] 20 meq PO BID 11/15/16 11/15/16 History Tamsulosin HCl [Tamsulosin HCl] 0.4 mg PO DAILY 11/15/16 11/15/16 History amLODIPine BESYLATE [Amlodipine 10 mg PO DAILY 11/15/16 11/15/16 History Besylate] clonazePAM [Clonazepam] 0.25 mg PO TID PRN 11/15/16 11/15/16 History Allergies Allergy/AdvReac Type Severity Reaction Status Date / Time No Known Allergies Allergy Verified 11/15/16 08:22 Physical Exam Vitals: Vital Signs Temp Pulse Pulse Resp BP BP BP 11/17/16 11:23 75 11/17/16 11:09 74 11/17/16 11:00 75 27 H 11/17/16 10:30 73 27 H 11/17/16 10:00 85 34 H 11/17/16 09:30 78 29 H 11/17/16 09:00 78 28 H 11/17/16 08:30 76 26 H 11/17/16 08:00 98.0 F 75 22 11/17/16 07:43 72 11/17/16 07:30 71 19 11/17/16 07:27 70 11/17/16 06:10 78 23 108/69 11/17/16 06:00 76 27 H 11/17/16 05:50 73 24 11/17/16 05:40 76 25 H 11/17/16 05:30 85 21 11/17/16 05:20 97 24 11/17/16 05:10 75 27 H 11/17/16 05:00 71 22 11/17/16 04:50 72 24 11/17/16 04:40 73 10 L 11/17/16 04:30 74 25 H 11/17/16 04:20 61 13 11/17/16 04:10 71 21 11/17/16 04:00 99.7 F H 70 22 11/17/16 03:50 70 23 11/17/16 03:40 69 21 11/17/16 03:30 68 23 11/17/16 03:20 66 20 11/17/16 03:10 65 17 11/17/16 03:02 64 11/17/16 03:00 65 22 11/17/16 02:50 64 22 11/17/16 02:30 65 12 11/17/16 02:00 66 22 11/17/16 01:30 67 22 11/17/16 01:00 66 11/17/16 00:30 66 11/17/16 00:00 99.3 F 65 12 11/16/16 23:30 64 11/16/16 23:28 64 11/16/16 23:18 63 11/16/16 23:06 63 11/16/16 23:02 99.3 F 21 129/66 11/16/16 23:00 65 21 11/16/16 22:30 64 21 11/16/16 22:00 64 22 11/16/16 21:30 64 11/16/16 21:00 63 21 11/16/16 20:30 60 11/16/16 20:13 97.4 F L 21 120/62 11/16/16 20:00 97.4 F L 60 22 11/16/16 19:32 62 11/16/16 19:30 64 18 11/16/16 19:00 55 L 18 11/16/16 18:30 53 L 13 11/16/16 18:20 52 L 13 11/16/16 18:10 51 L 12 11/16/16 18:00 55 L 13 11/16/16 17:50 56 L 13 11/16/16 17:40 97.7 F 60 14 11/16/16 17:30 97.7 F 13 11/16/16 13:47 98.5 F 68 16 11/16/16 13:17 98.3 F 63 16 105/62 11/16/16 12:47 98.2 F 65 16 109/62 11/16/16 12:17 98.3 F 65 16 120/83 11/16/16 12:02 98.2 F 66 18 111/62 11/16/16 12:00 68 16 11/16/16 11:47 98.2 F 69 18 144/78 BP Pulse Ox 01/05/17 11:23 11/17/16 11:09 11/17/16 11:00 90 L 11/17/16 10:30 92 L 11/17/16 10:00 87 L 11/17/16 09:30 92 L 11/17/16 09:00 92 L 11/17/16 08:30 93 L 11/17/16 08:00 94 L 11/17/16 07:43 11/17/16 07:30 94 L 11/17/16 07:27 11/17/16 06:10 96 11/17/16 06:00 96 11/17/16 05:50 95 11/17/16 05:40 94 L 11/17/16 05:30 92 L 11/17/16 05:20 93 L 11/17/16 05:10 94 L 11/17/16 05:00 96 11/17/16 04:50 96 11/17/16 04:40 96 11/17/16 04:30 96 11/17/16 04:20 96 11/17/16 04:10 97 11/17/16 04:00 97 11/17/16 03:50 97 11/17/16 03:40 97 11/17/16 03:30 97 11/17/16 03:20 97 11/17/16 03:10 97 11/17/16 03:02 11/17/16 03:00 97 11/17/16 02:50 97 11/17/16 02:30 98 11/17/16 02:00 98 11/17/16 01:30 98 11/17/16 01:00 98 11/17/16 00:30 97 11/17/16 00:00 97 11/16/16 23:30 96 11/16/16 23:28 11/16/16 23:18 11/16/16 23:06 95 11/16/16 23:02 97 11/16/16 23:00 96 11/16/16 22:30 95 11/16/16 22:00 95 11/16/16 21:30 95 11/16/16 21:00 95 11/16/16 20:30 94 L 11/16/16 20:13 11/16/16 20:00 93 L 11/16/16 19:32 11/16/16 19:30 91 L 11/16/16 19:00 94 L 11/16/16 18:30 93 L 11/16/16 18:20 93 L 11/16/16 18:10 92 L 11/16/16 18:00 93 L 11/16/16 17:50 93 L 11/16/16 17:40 93 L 11/16/16 17:30 93 L 11/16/16 13:47 106/61 90 L 11/16/16 13:17 91 L 11/16/16 12:47 92 L 11/16/16 12:17 90 L 11/16/16 12:02 90 L 11/16/16 12:00 11/16/16 11:47 90 L Intake and Output 11/16/16 11/17/16 11/17/16 22:59 06:59 14:59 Intake Total 1073.9 1194.210 290.25 Output Total 230 635 250 Balance 843.9 559.210 40.25 Intake: IV 174.9 11.3 Norepinephrine 4 mg In 48.9 11.3 Sodium Chloride 0.9% 250 ml @ Titrate IV .Q0M [facility] Rx#:[id number] Intake, IV Titration 899 1182.910 290.25 Amount Norepinephrine 4 mg In 45.410 Sodium Chloride 0.9% 250 ml @ Titrate IV .Q0M [facility] Rx#:[id number] Propofol 50 ml As IV .STK 45 120 -[facility] Rx#:[id number] Propofol 500 mg In Empty 123.5 40.25 Bag 1 bag @ Titrate IV . Q0M [facility] Rx#:[id number] Sodium Chloride 0.9% 1, 800 750 250 000 ml @ 100 mls/hr IV . Q10H [facility] Rx#:[id number] Tirofiban 12.5MG-250Ml Ns 108 250 ml @ 0.15 MCG/KG/MIN 18 mls/hr IV .[id number] [facility] Rx#:[id number] Tirofiban 12.5MG-250Ml Ns 54 36 250 ml As IV .[facility] Rx#:[id number] Output: Urine 230 635 250 Other: Voiding Method Indwelling Catheter Indwelling Catheter Indwelling Catheter Weight 100.7 kg 100.7 kg Patient Weight 11/18/16 06:59 Weight 100.7 kg ABP, PAP, CO, CI - Last 8 Hours Arterial Blood Pressure 93/57 Arterial Blood Pressure 101/60 Arterial Blood Pressure 114/66 Arterial Blood Pressure 104/64 Arterial Blood Pressure 101/66 Arterial Blood Pressure 111/61 Arterial Blood Pressure 102/54 Arterial Blood Pressure 94/50 Arterial Blood Pressure 120/65 Arterial Blood Pressure 111/49 Arterial Blood Pressure 110/59 Arterial Blood Pressure 113/60 Arterial Blood Pressure 122/65 Arterial Blood Pressure 132/70 Arterial Blood Pressure 122/68 Arterial Blood Pressure 117/63 Arterial Blood Pressure 117/63 Arterial Blood Pressure 120/64 Arterial Blood Pressure 120/65 Arterial Blood Pressure 118/63 Arterial Blood Pressure 117/63 Arterial Blood Pressure 117/63 Arterial Blood Pressure 117/64 GENERAL EXAM: Sedated, comfortable in no apparent distress. HEAD: Normocephalic. EYES: Normal reaction of pupils, equal size. NOSE: Clear with pink turbinates. THROAT: No tracheal and gastric tubes are secured in place. No erythema or exudates. NECK: No masses, no JVD. CHEST: No chest wall deformity. LUNGS: Equal air entry with rales in the left posterior base. CVS: S1 and S2 normal with no audible mumurs, regular rhythm. ABDOMEN: No hepatosplenomegaly, normal bowel sounds. SPINE: No scoliosis or deformity SKIN: No rashes Extremities: There is a left groin sheath in place. There is trace peripheral edema. No clubbing, no cyanosis. Peripheral pulses are intact. Results - Laboratory Findings CBC and BMP: 11/17/16 04:30 11/17/16 04:30 ABG ABG pH 7.41 (7.35-7.45) 11/17/16 04:47 ABG pCO2 37 mmHg (35-45) 11/17/16 04:47 ABG pO2 106 mmHg (83-108) 11/17/16 04:47 ABG O2 Saturation 98.0 % (94-97) H 11/17/16 04:47 Abnormal lab findings: Abnormal Labs 11/15/16 11/15/16 11/15/16 07:31 07:31 07:31 RBC Hct MCV 101.2 H MCH 35.4 H Plt Count 102 L ABG pH ABG pO2 ABG Total CO2 ABG O2 Saturation Sodium 147 H Chloride 108 H BUN Glucose 131 H POC Glucose (mg/dL) Calcium Total Creatine Kinase 41 L Troponin I Ur Specific [place] Urine Protein Urine Blood Urine RBC Urine Bacteria Hyaline Casts Urine Mucus 11/15/16 11/16/16 11/16/16 13:45 17:35 18:36 RBC Hct MCV MCH Plt Count ABG pH 7.33 L ABG pO2 76 L ABG Total CO2 25 H ABG O2 Saturation Sodium Chloride BUN Glucose POC Glucose (mg/dL) 209 H Calcium Total Creatine Kinase 49 L Troponin I Ur Specific [place] Urine Protein Urine Blood Urine RBC Urine Bacteria Hyaline Casts Urine Mucus 11/16/16 11/16/16 11/16/16 20:30 20:59 21:20 RBC Hct MCV MCH Plt Count ABG pH ABG pO2 80 L ABG Total CO2 25 H ABG O2 Saturation Sodium Chloride 108 H BUN Glucose 164 H POC Glucose (mg/dL) Calcium 7.9 L Total Creatine Kinase Troponin I Ur Specific [place] 1.050 H Urine Protein Trace H Urine Blood Moderate H Urine RBC 45 H Urine Bacteria Rare H Hyaline Casts 7 H Urine Mucus Rare H 11/16/16 11/17/16 11/17/16 23:37 04:30 04:30 RBC 3.71 L Hct 37.8 L MCV 101.9 H MCH 35.3 H Plt Count 88 L ABG pH ABG pO2 ABG Total CO2 ABG O2 Saturation Sodium 147 H Chloride 111 H BUN 21 H Glucose 144 H POC Glucose (mg/dL) 116 H Calcium 8.1 L Total Creatine Kinase Troponin I Ur Specific [place] Urine Protein Urine Blood Urine RBC Urine Bacteria Hyaline Casts Urine Mucus 11/17/16 11/17/16 11/17/16 04:30 04:47 06:11 RBC Hct MCV MCH Plt Count ABG pH ABG pO2 ABG Total CO2 ABG O2 Saturation 98.0 H Sodium Chloride BUN Glucose POC Glucose (mg/dL) 145 H Calcium Total Creatine Kinase Troponin I 237.000 H* Ur Specific [place] Urine Protein Urine Blood Urine RBC Urine Bacteria Hyaline Casts Urine Mucus - Diagnostic Findings Chest x-ray: image reviewed Assessment and Plan Plan: Impression: #1 Acute coronary syndrome status post stenting to the LAD with subsequent in- stent restenosis requiring a second intervention. Subsequent acute hypoxic respiratory failure requiring intubation and mechanical ventilation with hypotension and cardiogenic shock. #2 Hypertension, history of. #3 Atrial fibrillation, history of status post ablation. #4 Gastroesophageal reflux disease. #5 History of anxiety/depression. Plan: The patient was seen and evaluated by Dr. Hargrove. Her his chest x-ray and ABGs and labs were reviewed. We'll adjust the current vent settings increasing the PEEP to 10 and continue to wean down the FiO2. We'll repeat his chest x-ray and blood gases in the a.m. We'll give him daily interruption of sedation and weaning trials. Continue with bronchodilators every 4 hours. His Aggrastat drip has been discontinued this morning. We will change his IV solution 0.45 due to his hypernatremia. We'll continue to follow and make further recommendations based on his clinical status. Critical care time: 38 minutes. Time with Patient: Greater than 30
[2016-11-17 12:07] LABS: Glucose,Whole Blood 156 mg/dL (75-99)
[2016-11-17] MEDS: SODIUM CHLORIDE 0.45% 1,000 ML IV SCH (15:08)
[2016-11-17] MEDS ORDERED: FUROSEMIDE 10 MG/ML 2 ML VIAL IV ONE (15:10)
[2016-11-17] MEDS ORDERED: PROPOFOL 50 ML IV ONE (17:36)
[2016-11-17 18:52] LABS: Glucose,Whole Blood 151 mg/dL (75-99)
[2016-11-17] MEDS: ATORVASTATIN 80 MG TAB PO SCH (20:25)
--- NOTE | 2016-11-17 21:06 | PN ---
DATE OF SERVICE: 11/17/2016 This 71-year-old gentleman who was admitted with acute non- [id number] myocardial infarction had cardiac catheterization and stenting. The patient still has acute respiratory failure. The vent settings are adjusted at this time. The patient had become anxious on attempted weaning. Patient is off pressor support. Cardiology is following the patient closely. Patient is on antiplatelet agents. The most recent chest x-ray done today showed improving CHF with vascular congestion. Dr. Hargrove is following the patient closely. Past medical history reviewed. Review of systems could not be taken; the patient is mechanically ventilated and sedated. PAST MEDICAL HISTORY: Reviewed. REVIEW OF SYSTEMS: Could not be taken. The patient mechanically ventilated. Current medications are reviewed and include: 1. Maalox q.4 p.r.n. 2. Xanax 0.25 mg p.r.n. 3. Norvasc. 4. Lipitor. 5. Peridex b.i.d. 6. Klonopin. 7. Lexapro 20 mg. 8. Humalog. 9. Xopenex. 10. Toprol-XL. 11. Morphine sulfate. 12. Protonix. 13. K-Dur. 14. Flomax. 15. Ambien. PHYSICAL EXAMINATION: The patient is mechanically ventilated and sedated. Pulse 100, blood pressure 120/80, respirations 18, temperature normal, pulse ox 100% on assist control 50% FIO2, 5 of PEEP. HEENT: Conjunctivae normal. Oral mucosa moist. NECK: No jugular venous distention. No carotid bruit. CARDIOVASCULAR: S1, S2 muffled. No S3, no S4. RESPIRATORY: Breath sounds diminished at the bases. No rhonchi. No crackles. The patient is mechanically ventilated.vent settings are noted ABDOMEN: Soft, nontender. No mass palpable. LEGS: No edema. No swelling. CENTRAL NERVOUS SYSTEM: The patient is mechanically ventilated and sedated. could not be tested SKIN: No ulcer, rash or bleeding. LABS: WBC 7.4. MCV 101, ABGs noted. Sodium 147. Other labs are noted. Troponins are negative. ASSESSMENT: 1. Acute coronary syndrome with unstable angina, status post cardiac catheterization and stenting of the left anterior descending coronary artery with in-stent restenosis as well as re-stenting. 2. Acute hypoxic respiratory failure, on mechanical ventilation. 3. Congestive heart failure, acute exacerbation, with acute diastolic dysfunction. 4. Hypotension and cardiogenic shock, on pressor support. 5. Hypertension history. 6. History of cardiac arrhythmia. 7. History of gastroesophageal reflux disease. 8. Increased mean corpuscular volume. 9. Thrombocytopenia. 10. Hypernatremia. 11. Increased random blood sugar. 12. History of gastrointestinal bleed. 13. History of anxiety, depression not otherwise specified. 14. Remote history of nicotine dependence. 15. FULL CODE. RECOMMENDATIONS AND DISCUSSION: I recommend to continue with the current medications, including antiplatelet agents, continue with the monitoring, symptomatic treatment, mechanical ventilation. Otherwise, monitor fluid/electrolyte balance closely. One dose of Lasix has been given. Pulmonary consultation appreciated. Closely follow with Cardiology. Prognosis guarded because of multiple complex medical issues. Further recommendations to follow. MTDD
[2016-11-17 23:55] LABS: Glucose,Whole Blood 168 mg/dL (75-99)
--- NOTE | 2016-11-18 00:07 | P.PN ---
Subjective Principal diagnosis: Ischemic heart disease status post stent placement to LAD. This is a 71-year-old gentleman who was admitted to the hospital with complaints of recurrent chest pains suggestive of angina. Patient had a cardiac catheterization and was found to have significant disease involving the left anterior descending coronary artery. Patient had a stent placement by Dr. Beltran and was transferred to the floor. Patient developed in-stent stenosis and total occlusion of the LAD requiring repeat cardiac catheterization and repeat stent placement of the LAD. There were 2 diagonal branches that appear to be totally occluded. Patient subsequently developed respiratory issues requiring intubation. Chest x-ray is consistent with resolving pulmonary edema. Attempts at weaning the respirator were unsuccessful. [employer] is micromanaging his respiratory status. Patient's urine output seemed to be fair. I'm going to give additional dose of Lasix. His sodium is running high and the fluids or changing to half normal saline. We will going to get an echocardiogram done to assess LV function. Patient still has an arterial line in the femoral artery which we will plan to discontinue tomorrow. His platelet counts are also low. Patient is currently on both an aspirin and Effient. We' ll monitor is platelet counts closely Objective - Vital Signs Vital signs: Vital Signs Temp 98.3 F 11/17/16 20:00 Pulse 84 11/17/16 23:36 Resp 28 H 11/17/16 22:00 BP 108/69 11/17/16 06:10 Pulse Ox 94 L 11/17/16 22:00 Intake & Output 11/17/16 11/17/16 11/18/16 06:59 18:59 06:59 Intake Total 1590.210 737.50 333 Output Total 820 620 155 Balance 770.210 117.50 178 Weight 100.7 kg 100.7 kg 103.9 kg Intake: IV 41.3 Norepinephrine 4 mg In 41.3 Sodium Chloride 0.9% 250 ml @ Titrate IV .Q0M [facility] Rx#:[id number] Intake, IV Titration 1548.910 737.50 213 Amount Norepinephrine 4 mg In 45.410 Sodium Chloride 0.9% 250 ml @ Titrate IV .Q0M [facility] Rx#:[id number] Propofol 50 ml As IV .STK 150 -[facility] Rx#:[id number] Propofol 50 ml As IV .STK 63 -[facility] Rx#:[id number] Propofol 500 mg In Empty 123.5 137.50 50 Bag 1 bag @ Titrate IV . [facility]#:[id number] Sodium Chloride 0.45% 1, 350 100 000 ml @ 50 mls/hr IV . Q20H [facility] Rx#:[id number] Sodium Chloride 0.9% 1, 1050 250 000 ml @ 100 mls/hr IV . Q10H [facility] Rx#:[id number] Tirofiban 12.5MG-250Ml Ns 108 250 ml @ 0.15 MCG/KG/MIN 18 mls/hr IV .[id number] [facility] Rx#:[id number] Tirofiban 12.5MG-250Ml Ns 72 250 ml As IV .[facility] Rx#:[id number] Oral 120 Output: Urine 820 620 155 Other: Voiding Method Indwelling Catheter Indwelling Catheter Indwelling Catheter # Voids 1 ABP, PAP, CO, CI - Last Documented Arterial Blood Pressure 122/63 - Exam GENERAL EXAM: Patient intubated and sedated HEENT: Normocephalic. Normal reaction of pupils, equal size, normal range of extraocular motion. No erythema or exudates in the throat. NECK: No masses, no nuchal rigidity. CHEST: No chest wall deformity. LUNGS: Diminished breath sounds and some rales HEART: S1 and S2 normal ABDOMEN: No hepatosplenomegaly, normal bowel sounds, no guarding or rigidity. SKIN: No rashes CENTRAL NERVOUS SYSTEM: No focal deficits. EXTREMITIES: No cyanosis, clubbing or edema. - Labs CBC & Chem 7: 11/17/16 04:30 11/17/16 04:30 Labs: Abnormal Lab Results - Last 24 Hours (Table) 11/17/16 11/17/16 11/17/16 Range/Units 04:30 04:30 04:30 RBC 3.71 L (4.30-5.90) m/uL Hct 37.8 L (39.0-53.0) % MCV 101.9 H (80.0-100.0) fL MCH 35.3 H (25.0-35.0) pg Plt Count 88 L (150-450) k/uL ABG O2 Saturation (94-97) % Sodium 147 H (137-145) mmol/L Chloride 111 H (98-107) mmol/L BUN 21 H (9-20) mg/dL Glucose 144 H (74-99) mg/dL POC Glucose (mg/dL) (75-99) mg/dL Calcium 8.1 L (8.4-10.2) mg/dL Troponin I 237.000 H* (0.000-0.034) ng/mL 11/17/16 11/17/16 11/17/16 Range/Units 04:47 06:11 12:04 RBC (4.30-5.90) m/uL Hct (39.0-53.0) % MCV (80.0-100.0) fL MCH (25.0-35.0) pg Plt Count (150-450) k/uL ABG O2 Saturation 98.0 H (94-97) % Sodium (137-145) mmol/L Chloride (98-107) mmol/L BUN (9-20) mg/dL Glucose (74-99) mg/dL POC Glucose (mg/dL) 145 H 156 H (75-99) mg/dL Calcium (8.4-10.2) mg/dL Troponin I (0.000-0.034) ng/mL 11/17/16 11/17/16 11/17/16 Range/Units 12:15 18:50 23:52 RBC (4.30-5.90) m/uL Hct (39.0-53.0) % MCV (80.0-100.0) fL MCH (25.0-35.0) pg Plt Count (150-450) k/uL ABG O2 Saturation (94-97) % Sodium (137-145) mmol/L Chloride (98-107) mmol/L BUN (9-20) mg/dL Glucose (74-99) mg/dL POC Glucose (mg/dL) 151 H 168 H (75-99) mg/dL Calcium (8.4-10.2) mg/dL Troponin I 162.000 H* (0.000-0.034) ng/mL Assessment and Plan (1) Recurrent chest pain Status: Acute (2) Hypertension Status: Acute (3) GERD (gastroesophageal reflux disease) Status: Acute (4) History of placement of stent in LAD coronary artery Status: Acute (5) Anterior wall myocardial infarction Status: Acute (6) Pulmonary edema Status: Acute Plan: Continue respiratory support and pressor support. I will give one dose of Lasix 20 mg. IV fluids being changed to half normal saline. Patient is on aspirin and Effient. We'll follow his platelet count closely. An echocardiogram will be obtained. Chest x-ray and blood work tomorrow. Further examination depend upon clinical course. Prognosis is guarded.
[2016-11-18] MEDS: INSULIN LISPRO (humaLOG) 300 UNIT/3 ML VIAL SQ SCH ×4 (00:17→19:00)
[2016-11-18] MEDS: PROPOFOL 500 MG in EMPTY BAG 1 BAG IV SCH ×13 (01:08→22:43)
[2016-11-18] MEDS ORDERED: DILTIAZEM 125 MG in SODIUM CHLORIDE 0.9% 100 ML IV SCH (02:15)
[2016-11-18 02:20] LABS: Basophils % (A) 0 %; CH 35.7; CHCM 35.1; Eosinophils % (A) 0 %; HCT 37.6 % (39.0-53.0); HDW 2.57; HGB 13.2 gm/dL (13.0-17.5); Luc # (Auto) 0.17; Luc % (Auto) 2; Lymphocytes # (A) 0.8 k/uL (1.0-4.8); Lymphocytes % (A) 7 %; MCH 35.9 pg (25.0-35.0); MCV 102.4 fL (80.0-100.0); Macrocytosis Slight; Mean Platelet Volume 10.6; Monocytes # (A) 0.7 k/uL (0-1.0); Monocytes % (A) 6 %; Neutrophils # (A) 9.1 k/uL (1.3-7.7); Neutrophils % (A) 85 %; RBC 3.68 m/uL (4.30-5.90); WBC 10.8 k/uL (3.8-10.6); WBC (Perox) 11.07
[2016-11-18 02:30] LABS: Anion Gap 7 mmol/L; Blood Urea Nitrogen 27 mg/dL (9-20); Calcium 8.2 mg/dL (8.4-10.2); Carbon Dioxide 26 mmol/L (22-30); Chloride 110 mmol/L (98-107); Glucose 167 mg/dL (74-99); Magnesium 2.2 mg/dL (1.6-2.3); Non-African American GFR(MDRD) >60 (>60 ml/min/1.73 sqM); Phosphorous 2.4 mg/dL (2.5-4.5); Potassium 3.7 mmol/L (3.5-5.1); Sodium 143 mmol/L (137-145)
[2016-11-18 02:39] LABS: Creatine Kinase MB 32.5 ng/mL (0.0-2.4)
[2016-11-18] MEDS: AMIODARONE 450 MG in DEXTROSE 5% IN WATER 250 ML IV SCH ×6 (02:40→18:27)
[2016-11-18] MEDS: IPRATROPIUM 0.5 MG/2.5 ML NEBU INHALATION SCH ×6 (02:59→23:10)
[2016-11-18] MEDS: DEXTROSE 5% IN WATER 100 ML with AMIODARONE 150 MG IV ONE ×2 (03:00→03:26)
[2016-11-18] MEDS: LEVALBUTEROL NEB (CONC) 1.25 MG/0.5 ML AMP INHALATION SCH ×6 (03:01→23:10)
[2016-11-18] MEDS: MORPHINE SULFATE 2 MG/ML SYRINGE IVP PRN (03:15)
[2016-11-18] MEDS: NOREPINEPHRINE 4 MG in SODIUM CHLORIDE 0.9% 250 ML IV SCH (03:15)
[2016-11-18 04:42] LABS: ABG PCO2 32 mmHg (35-45); ABG PH 7.45 (7.35-7.45); ABG PO2 64 mmHg (83-108)
[2016-11-18 04:43] LABS: ABG Base Excess -1.4 mmol/L; ABG HCO3 22 mmol/L (21-25); ABG TCO2 23 mmol/L (19-24)
[2016-11-18 04:58] LABS: Basophils % (A) 0 %; CH 35.8; CHCM 34.9; Eosinophils % (A) 0 %; HCT 37.6 % (39.0-53.0); HDW 2.57; HGB 12.8 gm/dL (13.0-17.5); Luc # (Auto) 0.19; Luc % (Auto) 2; Lymphocytes % (A) 8 %; MCHC 34.1 g/dL (31.0-37.0); MCV 102.9 fL (80.0-100.0); Macrocytosis Slight; Mean Platelet Volume 9.4; Monocytes # (A) 0.8 k/uL (0-1.0); Monocytes % (A) 7 %; Neutrophils % (A) 83 %; RBC 3.66 m/uL (4.30-5.90); RDW 12.9 % (11.5-15.5); WBC (Perox) 12.07
[2016-11-18 05:00] LABS: INR 1.3 (<1.1); Partial Thromboplastin Time 23.3 sec (22.0-30.0); Prothrombin Time 12.7 sec (9.0-12.0)
[2016-11-18 05:01] LABS: Anion Gap 8 mmol/L; Blood Urea Nitrogen 29 mg/dL (9-20); Calcium 8.2 mg/dL (8.4-10.2); Carbon Dioxide 26 mmol/L (22-30); Chloride 111 mmol/L (98-107); Glucose 180 mg/dL (74-99); Magnesium 2.3 mg/dL (1.6-2.3); Non-African American GFR(MDRD) >60 (>60 ml/min/1.73 sqM); Phosphorous 2.5 mg/dL (2.5-4.5); Potassium 3.8 mmol/L (3.5-5.1); Sodium 145 mmol/L (137-145)
--- NOTE | 2016-11-18 07:45 | XR ---
EXAMINATION TYPE: XR chest 1V portable DATE OF EXAM: 11/18/2016 6:20 AM CLINICAL HISTORY: Difficulty breathing progress study. TECHNIQUE: Single AP portable upright view of the chest is obtained. COMPARISON: Chest x-ray from one day earlier FINDINGS: An endotracheal tube and orogastric tube are redemonstrated. Endotracheal tube has been re tracted and is now approximately 8 cm above the erick above the aortic knob and clavicles roughly T2 -T3 disc space level. Chronic parenchymal change with persistent left basilar opacity silhouetting left hemidiaphragm felt to reflect small left pleural effusion and associated left basilar atelectasis and/or infiltrate are all redemonstrated. There is stable mild cardiomegaly with atherosclerotic and prominent aortic knob. Hilar prominence likely reflects underlying pulmonary artery hypertension. Improved central vascular congestion is noted. Right lung remains predominantly clear. Osseous structures are demineralized. IMPRESSION: Persistent chronic parenchymal change and cardiomegaly with small left pleural effusion a nd left basilar atelectasis and/or infiltrate. Improved central vascular congestion is felt present.
[2016-11-18] MEDS ORDERED: POTASSIUM CHLORIDE ORAL LIQUID 40 MEQ/30 ML CUP NG-TUBE SCH ×2 (08:00→20:00)
[2016-11-18] MEDS: CHLORHEXIDINE GLUCONATE 15 ML CUP MUCOUS MEM SCH ×2 (08:38→20:04)
[2016-11-18] MEDS: amLODIPine 10 MG TAB PO SCH (08:39)
[2016-11-18] MEDS: ESCITALOPRAM 20 MG TAB PO SCH (08:39)
[2016-11-18] MEDS: ASPIRIN 81 MG CHEW PO SCH (08:39)
[2016-11-18] MEDS: METOPROLOL SUCCINATE (ER) 100 MG TAB.ER.24H PO SCH (08:40)
[2016-11-18] MEDS: ISOSORBIDE MONONITRATE ER 60 MG TAB.ER.24H PO SCH (08:40)
[2016-11-18] MEDS: POTASSIUM CHLORIDE ER 20 MEQ TAB.ER PO SCH ×2 (08:42→20:04)
[2016-11-18] MEDS: TAMSULOSIN 0.4 MG CAP.ER.24H PO SCH (08:44)
[2016-11-18] MEDS: PRASUGREL 10 MG TAB PO SCH (08:46)
--- NOTE | 2016-11-18 09:33 | P.PN ---
Subjective This a 71-year-old Karl that we saw yesterday in consultation. He has a known history of atrial fibrillation status post ablation essential hypertension stroke GERD and depression. He was transferred out from [facility] with complaints of chest pain. He had undergone A cardiac catheterization by Dr. Beltran. He was found have significant LAD stenosis and a stent was placed. Initially was transferred to [address] [place] [address] after the procedure but later that same day developed additional chest pain and ST segment elevation. One back to the [facility] and had a second stent placed. Anyway the patient's developed respiratory distress in the Abdomen was intubated. He spent here in the ICU now for data half still on the ventilator. Not made much progress. Last night he apparently developed atrial fibrillation and was started on Cordarone 1 mg/m. On 80% and 10 of PEEP his pO2 was only 64 some is not closed weaning at this point. His chest x-ray does not look bad. He's got some mild heart failure fluid overload. The patient may be developing acute lung injury/ARDS. Currently is on the assist control mode rate of 18 tidal volume 450 FiO2 of 80% PEEP of 10 blood gases show a PaO2 of 64 a PaCO2 32. Or 5. He is getting 0.45 IV at 50 mL an hour levophed at 2 mcg/m propofol 45 mics per kilogram per kilogram per minute and a Cordarone drip at 1 mg/m. Objective - Vital Signs Vital signs: Vital Signs Temp 98.6 F 11/18/16 08:00 Pulse 116 H 11/18/16 09:00 Resp 24 11/18/16 09:00 BP 108/69 11/17/16 06:10 Pulse Ox 93 L 11/18/16 09:00 Intake & Output 11/17/16 11/18/16 11/18/16 18:59 06:59 18:59 Intake Total 737.50 1255.982 536.909 Output Total 620 490 115 Balance 117.50 765.982 421.909 Weight 100.7 kg 103.9 kg Intake: Intake, IV Titration 737.50 1135.982 536.909 Amount Amiodarone 450 mg In 132.5 249.609 Dextrose 5% in Water 250 ml @ 1 MG/MIN 34.53 mls/ hr IV .Q7H31M [facility] Rx#: [id number] Dextrose 5% in Water 100 33.3 ml @ 618 mls/hr IV .Q10M ONE with Amiodarone 150 mg Rx#:[id number] Diltiazem 125 mg In 1.667 Sodium Chloride 0.9% 100 ml @ 10 MG/HR 10 mls/hr IV .[id number] [facility] Rx#: [id number] Norepinephrine 4 mg In 12.065 Sodium Chloride 0.9% 250 ml @ Titrate IV .Q0M [facility] Rx#:[id number] Propofol 50 ml As IV .STK 261 54 -MED ONE Rx#:[id number] Propofol 500 mg In Empty 137.50 273.75 50 Bag 1 bag @ Titrate IV . Q0M [facility] Rx#:[id number] Sodium Chloride 0.45% 1, 350 455 150 000 ml @ 50 mls/hr IV . Q20H [facility] Rx#:[id number] Sodium Chloride 0.9% 1, 250 000 ml @ 100 mls/hr IV . Q10H [facility] Rx#:[id number] Oral 120 Output: Urine 620 490 115 Other: Voiding Method Indwelling Catheter Indwelling Catheter # Voids 1 ABP, PAP, CO, CI - Last Documented Arterial Blood Pressure 100/63 - Exam No acute distress, currently sedated. HEENT examination is grossly unremarkable. Mucous membranes are moist. Endotracheal tube is noted. NG tube is noted. Neck supple. Full range of motion. Cardiovascular examination reveals regular rhythm rate. S1-S2 normal. Lungs are relatively clear. A few scattered rhonchi and wheezes. Abdomen soft. Extremities are intact. - Labs CBC & Chem 7: 11/18/16 04:45 11/18/16 04:44 Labs: Abnormal Lab Results - Last 24 Hours (Table) 11/17/16 11/17/16 11/17/16 Range/Units 12:04 12:15 18:50 WBC (3.8-10.6) k/uL RBC (4.30-5.90) m/uL Hgb (13.0-17.5) gm/dL Hct (39.0-53.0) % MCV (80.0-100.0) fL MCH (25.0-35.0) pg Plt Count (150-450) k/uL Neutrophils # (1.3-7.7) k/uL Lymphocytes # (1.0-4.8) k/uL PT (9.0-12.0) sec ABG pCO2 (35-45) mmHg ABG pO2 (83-108) mmHg ABG O2 Saturation (94-97) % Chloride (98-107) mmol/L BUN (9-20) mg/dL Glucose (74-99) mg/dL POC Glucose (mg/dL) 156 H 151 H (75-99) mg/dL Calcium (8.4-10.2) mg/dL Phosphorus (2.5-4.5) mg/dL Total Creatine Kinase (55-170) U/L CK-MB (CK-2) (0.0-2.4) ng/mL Troponin I 162.000 H* (0.000-0.034) ng/mL 11/17/16 11/18/16 11/18/16 Range/Units 23:52 02:15 02:15 WBC 10.8 H (3.8-10.6) k/uL RBC 3.68 L (4.30-5.90) m/uL Hgb (13.0-17.5) gm/dL Hct 37.6 L (39.0-53.0) % MCV 102.4 H (80.0-100.0) fL MCH 35.9 H (25.0-35.0) pg Plt Count 59 L (150-450) k/uL Neutrophils # 9.1 H (1.3-7.7) k/uL Lymphocytes # 0.8 L (1.0-4.8) k/uL PT (9.0-12.0) sec ABG pCO2 (35-45) mmHg ABG pO2 (83-108) mmHg ABG O2 Saturation (94-97) % Chloride 110 H (98-107) mmol/L BUN 27 H (9-20) mg/dL Glucose 167 H (74-99) mg/dL POC Glucose (mg/dL) 168 H (75-99) mg/dL Calcium 8.2 L (8.4-10.2) mg/dL Phosphorus 2.4 L (2.5-4.5) mg/dL Total Creatine Kinase (55-170) U/L CK-MB (CK-2) (0.0-2.4) ng/mL Troponin I (0.000-0.034) ng/mL 11/18/16 11/18/16 11/18/16 Range/Units 02:15 04:32 04:44 WBC (3.8-10.6) k/uL RBC (4.30-5.90) m/uL Hgb (13.0-17.5) gm/dL Hct (39.0-53.0) % MCV (80.0-100.0) fL MCH (25.0-35.0) pg Plt Count (150-450) k/uL Neutrophils # (1.3-7.7) k/uL Lymphocytes # (1.0-4.8) k/uL PT (9.0-12.0) sec ABG pCO2 32 L (35-45) mmHg ABG pO2 64 L (83-108) mmHg ABG O2 Saturation 93.0 L (94-97) % Chloride 111 H (98-107) mmol/L BUN 29 H (9-20) mg/dL Glucose 180 H (74-99) mg/dL POC Glucose (mg/dL) (75-99) mg/dL Calcium 8.2 L (8.4-10.2) mg/dL Phosphorus (2.5-4.5) mg/dL Total Creatine Kinase 1479 H (55-170) U/L CK-MB (CK-2) 32.5 H* (0.0-2.4) ng/mL Troponin I (0.000-0.034) ng/mL 11/18/16 11/18/16 Range/Units 04:44 04:45 WBC 12.0 H (3.8-10.6) k/uL RBC 3.66 L (4.30-5.90) m/uL Hgb 12.8 L (13.0-17.5) gm/dL Hct 37.6 L (39.0-53.0) % MCV 102.9 H (80.0-100.0) fL MCH (25.0-35.0) pg Plt Count 61 L (150-450) k/uL Neutrophils # 10.0 H (1.3-7.7) k/uL Lymphocytes # (1.0-4.8) k/uL PT 12.7 H (9.0-12.0) sec ABG pCO2 (35-45) mmHg ABG pO2 (83-108) mmHg ABG O2 Saturation (94-97) % Chloride (98-107) mmol/L BUN (9-20) mg/dL Glucose (74-99) mg/dL POC Glucose (mg/dL) (75-99) mg/dL Calcium (8.4-10.2) mg/dL Phosphorus (2.5-4.5) mg/dL Total Creatine Kinase (55-170) U/L CK-MB (CK-2) (0.0-2.4) ng/mL Troponin I (0.000-0.034) ng/mL Assessment and Plan (1) Respiratory failure Status: Acute (2) Ventilator dependence Status: Acute (3) Anterior wall myocardial infarction Status: Acute (4) GERD (gastroesophageal reflux disease) Status: Acute (5) History of placement of stent in LAD coronary artery Status: Acute (6) Hypertension Status: Acute (7) Pulmonary edema Status: Acute (8) Recurrent chest pain Status: Acute Plan: Planned for 11/18/2016 The patient's chest x-ray labs and medications as well as other data is reviewed. No weaning today. The patient is maintained on the ventilator. PEEP was increased yesterday. We'll continue to follow. We'll start him on tube feeds. Medications are appropriate. We'll hoping make some progress over the next 24 hours. Time with Patient: Greater than 30
--- NOTE | 2016-11-18 10:31 | ECHOF ---
Referral Reason:lv function MEASUREMENTS -------- HEIGHT: 182.9 cm WEIGHT: 10.0 kg BP: RVIDd: 3.2 cm (< 3.3) IVSd: 1.3 cm (0.6 - 1.1) LVIDd: 4.7 cm (3.9 - 5.3) LVPWd: 1.4 cm (0.6 - 1.1) IVSs: 1.4 cm LVIDs: 4.2 cm LVPWs: 1.7 cm Ao Diam: 3.4 cm (2.0 - 3.7) LA Diam: 4.3 cm (2.7 - 3.8) MV EXCURSION: 18.959 mm (> 18.000) MV EF SLOPE: 135 mm/s (70 - 150) EPSS: 0.6 cm MV E Michele: 0.54 m/s MV DecT: 156 ms MV A Michele: 0.49 m/s MV E/A Ratio: 1.10 RAP: 5.00 mmHg RVSP: 25.00 mmHg FINDINGS -------- Sinus rhythm. This was a technically good study. There is mild concentric left ventricular hypertrophy. There is moderate global hypokinesis of LV . Overall left ventricular systolic function is moderate-severely impaired with, an EF between 30 - 35 %. Anterseptal Hypokinesis Slinger Hypokinesis. Distal Septal Hypokinesis. The right ventricle is normal in size. The right atrial size is normal. There is mild aortic valve sclerosis. There is no evidence of aortic regurgitation. Mild mitral annular calcification present. Mild mitral regurgitation is present. Mild tricuspid regurgitation present. There is no evidence of pulmonary hypertension. The right ventricular systolic pressure, as measured by Doppler, is 25.00mmHg. There is no pulmonic regurgitation present. The aortic root size is normal. There is no pericardial effusion. CONCLUSIONS -------- 1. There is mild concentric left ventricular hypertrophy. 2. There is no evidence of pulmonary hypertension. 3. The right ventricular systolic pressure, as measured by Doppler, is 25.00mmHg. 4. There is no pulmonic regurgitation present. 5. The aortic root size is normal. 6. There is no pericardial effusion. 7. Overall left ventricular systolic function is moderate-severely impaired with, an EF between 30 - 35 %. 8. Anterseptal Hypokinesis 9. Slinger Hypokinesis. 10. Distal Septal Hypokinesis. 11. There is mild aortic valve sclerosis. 12. Mild mitral annular calcification present. 13. Mild mitral regurgitation is present. 14. Mild tricuspid regurgitation present. MARKETING MANAGER: Morelia Parry RDCS
[2016-11-18] MEDS: SODIUM CHLORIDE 0.45% 1,000 ML IV SCH (10:42)
[2016-11-18] MEDS: PANTOPRAZOLE 40 MG/10 ML VIAL IVP SCH (10:42)
[2016-11-18] MEDS: DEXTROSE 5% IN WATER 1,000 ML IV SCH (11:00)
[2016-11-18 11:30] LABS: Glucose,Whole Blood 162 mg/dL (75-99)
[2016-11-18] MEDS ORDERED: DEXTROSE 5% IN WATER 100 ML with AMIODARONE 150 MG IV ONE (11:44)
[2016-11-18] MEDS ORDERED: DIGOXIN 250 MCG/ML 2 ML AMP IVP ONE ×2 (11:46→18:00)
[2016-11-18] MEDS ORDERED: FUROSEMIDE 10 MG/ML 2 ML VIAL IV ONE (11:52)
[2016-11-18 12:18] VITALS: BMI 30.2
[2016-11-18] MEDS ORDERED: METOPROLOL TARTRATE 12.5 MG TAB PO STA (17:58)
[2016-11-18 18:23] LABS: Glucose,Whole Blood 181 mg/dL (75-99)
--- NOTE | 2016-11-18 19:44 | PN ---
DATE OF SERVICE: 11/18/2016 This 71-year-old gentleman was admitted with acute non-ST segment elevation myocardial infarction. Patient also had unstable angina. Patient had cardiac catheterization and stenting and in-stent thrombus also. Patient required . Patient failed weaning at this time. Patient is on mechanical ventilation. The vent settings are 80% FiO2, 450 tidal volume and PEEP of 10. The patient also had atrial fibrillation with fast ventricular rate. Patient Cardiology is following the patient closely also. A 2-D echo with Doppler done by Cardiology showed ejection fraction about 30 to 35% indicating acute on chronic systolic dysfunction and also had anteroseptal hypokinesis and apical hypokinesis also. PAST MEDICAL HISTORY: Reviewed. Review of systems could not be taken. The patient is mechanically ventilated. PHYSICAL EXAMINATION: Patient is on mechanical ventilation. Pulse 126, blood pressure 111/60, respirations 20, temperature normal, pulse ox 90% on mechanical ventilation of 80% FiO2. HEENT: Conjunctivae normal. NECK: No jugular venous distention. CARDIOVASCULAR: S1 and S2, muffled. RESPIRATORY: Breath sounds diminished at the bases. A few scattered rhonchi and crackles. ABDOMEN: Soft, obese, nontender. LEGS: No edema, no swelling. NERVOUS SYSTEM: Higher function as mentioned. Moves all four limbs. No focal motor deficits. LYMPHATIC: No lymphadenopathy in the neck, axillae or groin. SKIN: No ulcer, rash or bleeding. LABS: WBC 12, hemoglobin is 12.8. Otherwise, troponin is .8. ASSESSMENT: 1. Acute non-ST elevation myocardial infarction, status post cardiac catheterization and stenting of the left anterior descending as well as in-stent restenosis as well as restenting, with failure to wean. 2. Acute hypoxic respiratory failure on mechanical ventilation. 3. Congestive heart failure with acute exacerbation, with acute on chronic systolic dysfunction, ejection fraction 30 to 35% with anteroseptal hypokinesia and apical hypokinesis. 4. Hypotension and cardiogenic shock on pressor support. 5. Atrial fibrillation with fast ventricular rate. 6. Hypertension history. 7. History of cardiac catheterization. 8. History of gastroesophageal reflux disease. 9. Increased MCV. 10. Thrombocytopenia. 11. Hypernatremia. 12. Increased random blood sugar. 13. History of gastrointestinal bleed. 14. History of anxiety, depression, not otherwise specified. 15. Remote history of nicotine dependence. 16. FULL CODE. 17. Increased WBC. RECOMMENDATIONS AND DISCUSSION: In this 71-year-old gentleman who presented with multiple complex medical issues, we will monitor the patient closely. Continue the current medications, continue symptomatic treatment. Otherwise, at this time will continue with the diuretics. Continue the bronchodilators and continue with amiodarone drip per Cardiology. Guarded prognosis because of multiple complex medical issues. Further recommendations to follow. Closely follow with Cardiology. MTDD
[2016-11-18] MEDS: FUROSEMIDE 10 MG/ML 4 ML VIAL IV SCH (20:04)
[2016-11-18] MEDS: ATORVASTATIN 80 MG TAB PO SCH (20:04)
[2016-11-18 21:12] VITALS: BP 103/66
[2016-11-19 00:11] LABS: Glucose,Whole Blood 179 mg/dL (75-99)
[2016-11-19] MEDS: INSULIN LISPRO (humaLOG) 300 UNIT/3 ML VIAL SQ SCH ×3 (00:12→13:18)
[2016-11-19] MEDS: LORazepam 2 MG/ML SYRINGE IV PRN ×2 (00:15→09:50)
[2016-11-19] MEDS: PROPOFOL 500 MG in EMPTY BAG 1 BAG IV SCH ×8 (00:44→11:20)
[2016-11-19] MEDS: AMIODARONE 450 MG in DEXTROSE 5% IN WATER 250 ML IV SCH ×2 (00:45)
[2016-11-19] MEDS: ACETAMINOPHEN TAB 500 MG TAB PO PRN ×2 (01:35→08:47)
[2016-11-19] MEDS: IPRATROPIUM 0.5 MG/2.5 ML NEBU INHALATION SCH ×3 (03:00→11:15)
[2016-11-19] MEDS: LEVALBUTEROL NEB (CONC) 1.25 MG/0.5 ML AMP INHALATION SCH ×3 (03:00→11:15)
[2016-11-19 04:38] LABS: ABG Base Excess -2.7 mmol/L; ABG HCO3 21 mmol/L (21-25); ABG PCO2 30 mmHg (35-45); ABG PH 7.45 (7.35-7.45); ABG PO2 67 mmHg (83-108); ABG TCO2 22 mmol/L (19-24)
[2016-11-19] MEDS: NOREPINEPHRINE 4 MG in SODIUM CHLORIDE 0.9% 250 ML IV SCH (04:47)
[2016-11-19] MEDS: SODIUM CHLORIDE 0.45% 1,000 ML IV SCH (04:48)
[2016-11-19 05:06] LABS: Glucose,Whole Blood 194 mg/dL (75-99)
[2016-11-19 05:13] LABS: Basophils % (A) 0 %; CH 35.9; CHCM 34.9; Eosinophils % (A) 0 %; HCT 37.9 % (39.0-53.0); HDW 2.68; HGB 12.7 gm/dL (13.0-17.5); Luc # (Auto) 0.18; Luc % (Auto) 2; Lymphocytes # (A) 0.8 k/uL (1.0-4.8); Lymphocytes % (A) 8 %; MCH 34.5 pg (25.0-35.0); MCHC 33.4 g/dL (31.0-37.0); MCV 103.3 fL (80.0-100.0); Macrocytosis Slight; Monocytes # (A) 0.8 k/uL (0-1.0); Monocytes % (A) 8 %; Neutrophils # (A) 8.2 k/uL (1.3-7.7); Neutrophils % (A) 82 %; RBC 3.67 m/uL (4.30-5.90); RDW 13.1 % (11.5-15.5); WBC 10.1 k/uL (3.8-10.6); WBC (Perox) 10.22
[2016-11-19 05:30] LABS: Anion Gap 7 mmol/L; Blood Urea Nitrogen 33 mg/dL (9-20); Calcium 7.7 mg/dL (8.4-10.2); Carbon Dioxide 23 mmol/L (22-30); Chloride 110 mmol/L (98-107); Glucose 199 mg/dL (74-99); Magnesium 2.2 mg/dL (1.6-2.3); Non-African American GFR(MDRD) 59 (>60 ml/min/1.73 sqM); Potassium 4.7 mmol/L (3.5-5.1); Sodium 140 mmol/L (137-145)
[2016-11-19] MEDS: MORPHINE SULFATE 2 MG/ML SYRINGE IVP PRN ×2 (05:58→10:00)
--- NOTE | 2016-11-19 07:17 | XR ---
EXAMINATION TYPE: XR chest 1V portable DATE OF EXAM: 11/19/2016 6:43 AM CLINICAL HISTORY: Difficulty breathing progress study. TECHNIQUE: Single AP portable semiupright view of the chest is obtained. COMPARISON: Chest x-ray from one day earlier FINDINGS: Orogastric tube is stable in appearance. Endotracheal tube has been advanced and is now at the inferior aortic knob level approximately 2 cm above erick. There is persistent chronic parenchymal change with persistent left basilar opacity silhouetting left hemidiaphragm felt to reflect left basilar atelectasis and/or infiltrate and probable small left ple ural effusion all redemonstrated. There is stable mild cardiomegaly with atherosclerotic and prominen t aortic knob. And bilateral hilar prominence likely reflects underlying pulmonary artery hypertensio n is redemonstrated. Worsening mild central vascular congestion is noted. Right lung remains predomin antly clear. Multilevel spurring in the spine is present.. IMPRESSION: Chronic changes and cardiomegaly with increasing central vascular congestion suggests wor sening CHF exacerbation. In addition left basilar atelectasis and/or infiltrate and probable small pl eural effusion are once again noted.
[2016-11-19] MEDS: CHLORHEXIDINE GLUCONATE 15 ML CUP MUCOUS MEM SCH (08:48)
[2016-11-19] MEDS: PANTOPRAZOLE 40 MG/10 ML VIAL IVP SCH (08:48)
[2016-11-19] MEDS: ASPIRIN 81 MG CHEW PO SCH (08:49)
[2016-11-19] MEDS: PRASUGREL 10 MG TAB PO SCH (08:49)
[2016-11-19] MEDS: FUROSEMIDE 10 MG/ML 4 ML VIAL IV SCH (08:49)
[2016-11-19] MEDS: POTASSIUM CHLORIDE ER 20 MEQ TAB.ER PO SCH (08:49)
[2016-11-19] MEDS: ESCITALOPRAM 20 MG TAB PO SCH (08:49)
[2016-11-19] MEDS: ISOSORBIDE MONONITRATE ER 60 MG TAB.ER.24H PO SCH (08:50)
[2016-11-19] MEDS ORDERED: PROPOFOL 50 ML IV ONE ×3 (09:32→12:52)
[2016-11-19] MEDS ORDERED: DILTIAZEM 125 MG in SODIUM CHLORIDE 0.9% 100 ML IV SCH (10:15)
[2016-11-19] MEDS ORDERED: CISATRACURIUM 2 MG/ML 5 ML VIAL IV ONE (10:20)
[2016-11-19] MEDS: DEXTROSE 5% IN WATER 1,000 ML IV SCH (10:21)
[2016-11-19 12:13] VITALS: TEMP 99.6
[2016-11-19 12:30] LABS: Glucose,Whole Blood 192 mg/dL (75-99)
--- NOTE | 2016-11-19 12:55 | P.PN ---
Subjective Principal diagnosis: ST segment elevation myocardial infarction. This is a 71-year-old gentleman who is transferred from [place] following a episode of chest pain. He has a history of atrial fibrillation status post ablation, hypertension, CVA, GERD, depression. Upon arrival here he had undergone cardiac catheterization was found to have a significant LAD stenosis and stent placement. Later that same day he developed additional chest pain and ST segment elevation. He was returned to the [facility] and a was found to have in-stent restenosis and was restented. Unfortunately he had developed acute respiratory distress requiring intubation and mechanical ventilatory support. He is seen today again today in follow-up in the ICU. He has developed atrial fibrillation with RVR and recurrent ST segment elevations and increasing troponins currently at 59.5. His O2 requirements have increased as well. He is currently on assist control of 18 tidal via 450 FiO2 80% and a PEEP of 10. Morning blood gases revealed a pO2 of 67 CO2 of 30 and a pH of 7.45. His chest x-ray shows evidence of congestive heart failure/fluid volume overload. There is consolidation and volume loss in the left base. He is currently on a D5W at 50 MLS per hour, propofol at 55 mcg/kg/m., Levo fed at 4 mcg/kg/m, amiodarone at 1 mg/m, Cardizem drip at 5 mg per hour, he is receiving tube feedings in the form of Vital HP. Objective - Vital Signs Vital signs: Vital Signs Temp 99.6 F 11/19/16 12:00 Pulse 117 H 11/19/16 12:00 Resp 26 H 11/19/16 12:00 BP 103/66 11/18/16 20:00 Pulse Ox 91 L 11/19/16 12:00 Intake & Output 11/18/16 11/19/16 11/19/16 18:59 06:59 18:59 Intake Total 8732.537 7811.901 609.139 Output Total 563 1040 370 Balance 1276.261 4130.901 239.139 Weight 103.9 kg 104.5 kg Intake: IV 1114.7 371.6 Amiodarone 233.1 33.3 Amiodarone 450 mg In 132.9 Dextrose 5% in Water 250 ml @ 1 MG/MIN 34.53 mls/ hr IV .Q7H31M [facility] Rx#: [id number] Dextrose 5% in Water 1, 350 300 000 ml @ 50 mls/hr IV . Q20H [facility] Rx#:[id number] Levophed 79.1 11.3 Norepinephrine 4 mg In 22.6 Sodium Chloride 0.9% 250 ml @ Titrate IV .Q0M [facility] Rx#:[id number] Propofol 54 27 Propofol 500 mg In Empty 243 Bag 1 bag @ Titrate IV . Q0M [facility] Rx#:[id number] Intake, IV Titration 1771.987 962.201 157.539 Amount Amiodarone 450 mg In 508.609 217.539 Dextrose 5% in Water 250 ml @ 1 MG/MIN 34.53 mls/ hr IV .Q7H31M [facility] Rx#: [id number] Dextrose 5% in Water 1, 300 250 000 ml @ 50 mls/hr IV . Q20H [facility] Rx#:[id number] Dextrose 5% in Water 100 149.9 ml @ 618 mls/hr IV .Q10M [facility] with Amiodarone 150 mg Rx#:[id number] Dextrose 5% in Water 100 233.1 33.3 ml @ 618 mls/hr IV .Q10M [facility] with Amiodarone 150 mg Rx#:[id number] Norepinephrine 4 mg In 52.578 168.212 68.389 Sodium Chloride 0.9% 250 ml @ Titrate IV .Q0M [facility] Rx#:[id number] Propofol 50 ml As IV .STK 54 -[facility] Rx#:[id number] Propofol 500 mg In Empty 273.80 293.15 89.15 Bag 1 bag @ Titrate IV . Q0M [facility] Rx#:[id number] Sodium Chloride 0.45% 1, 200 000 ml @ 50 mls/hr IV . Q20H [facility] Rx#:[id number] Oral 60 Tube Feeding 60 250 80 Other 60 Output: Urine 563 1040 370 Other: Voiding Method Indwelling Catheter Indwelling Catheter Indwelling Catheter # Voids 1 ABP, PAP, CO, CI - Last Documented Arterial Blood Pressure 88/52 - Exam GENERAL EXAM: Sedated, intubated. HEAD: Normocephalic. EYES: Normal reaction of pupils, equal size. NOSE: Clear with pink turbinates. THROAT: Oral endotracheal and gastric tube are secured in place. NECK: No masses, no JVD. CHEST: No chest wall deformity. LUNGS: Equal air entry with bilateral scattered rhonchi, crackles in the bases. CVS: S1 and S2 normal with no audible murmurs, irregular rhythm. ABDOMEN: Obese, soft, normal bowel sounds, no guarding or rigidity. Extremities: There is 1-2+ lower extremity peripheral edema. No clubbing, no cyanosis. Peripheral pulses are intact. - Labs CBC & Chem 7: 11/19/16 05:05 11/19/16 05:05 Labs: Abnormal Lab Results - Last 24 Hours (Table) 11/18/16 11/18/16 11/18/16 Range/Units 12:10 18:20 18:20 RBC (4.30-5.90) m/uL Hgb (13.0-17.5) gm/dL Hct (39.0-53.0) % MCV (80.0-100.0) fL Plt Count (150-450) k/uL Neutrophils # (1.3-7.7) k/uL Lymphocytes # (1.0-4.8) k/uL ABG pCO2 (35-45) mmHg ABG pO2 (83-108) mmHg Chloride (98-107) mmol/L BUN (9-20) mg/dL Glucose (74-99) mg/dL POC Glucose (mg/dL) 181 H (75-99) mg/dL Calcium (8.4-10.2) mg/dL Troponin I 71.800 H* 59.500 H* (0.000-0.034) ng/mL 11/19/16 11/19/16 11/19/16 Range/Units 00:08 00:10 04:31 RBC (4.30-5.90) m/uL Hgb (13.0-17.5) gm/dL Hct (39.0-53.0) % MCV (80.0-100.0) fL Plt Count (150-450) k/uL Neutrophils # (1.3-7.7) k/uL Lymphocytes # (1.0-4.8) k/uL ABG pCO2 30 L (35-45) mmHg ABG pO2 67 L (83-108) mmHg Chloride (98-107) mmol/L BUN (9-20) mg/dL Glucose (74-99) mg/dL POC Glucose (mg/dL) 179 H (75-99) mg/dL Calcium (8.4-10.2) mg/dL Troponin I 59.500 H* (0.000-0.034) ng/mL 11/19/16 11/19/16 11/19/16 Range/Units 05:04 05:05 05:05 RBC 3.67 L (4.30-5.90) m/uL Hgb 12.7 L (13.0-17.5) gm/dL Hct 37.9 L (39.0-53.0) % MCV 103.3 H (80.0-100.0) fL Plt Count 61 L (150-450) k/uL Neutrophils # 8.2 H (1.3-7.7) k/uL Lymphocytes # 0.8 L (1.0-4.8) k/uL ABG pCO2 (35-45) mmHg ABG pO2 (83-108) mmHg Chloride 110 H (98-107) mmol/L BUN 33 H (9-20) mg/dL Glucose 199 H (74-99) mg/dL POC Glucose (mg/dL) 194 H (75-99) mg/dL Calcium 7.7 L (8.4-10.2) mg/dL Troponin I (0.000-0.034) ng/mL 11/19/16 Range/Units 12:18 RBC (4.30-5.90) m/uL Hgb (13.0-17.5) gm/dL Hct (39.0-53.0) % MCV (80.0-100.0) fL Plt Count (150-450) k/uL Neutrophils # (1.3-7.7) k/uL Lymphocytes # (1.0-4.8) k/uL ABG pCO2 (35-45) mmHg ABG pO2 (83-108) mmHg Chloride (98-107) mmol/L BUN (9-20) mg/dL Glucose (74-99) mg/dL POC Glucose (mg/dL) 192 H (75-99) mg/dL Calcium (8.4-10.2) mg/dL Troponin I (0.000-0.034) ng/mL Microbiology - Last 24 Hours (Table) 11/19/16 00:35 Urine Culture - Preliminary Urine,Catheterized Assessment and Plan Plan: Impression: #1 Acute coronary syndrome status post stenting to the LAD with subsequent in- stent restenosis requiring a second intervention. Subsequent acute hypoxic respiratory failure requiring intubation and mechanical ventilation with hypotension and cardiogenic shock. #2 Hypertension, history of. #3 Atrial fibrillation, history of status post ablation. #4 Gastroesophageal reflux disease. #5 History of anxiety/depression. Plan: The patient was seen and evaluated by Dr. Hargrove. Her his chest x-ray and ABGs and labs were reviewed. We've increased the FiO2 to 100% and increase the rate to 22. His overall prognosis remains quite poor at this point. We've had discussion with the patient's who states he would've never have wanted any long-term life support. She is going to be talking to her family about possible terminal wean. He does remain a no CPR status. Otherwise, we'll continue with full supportive care until he her back from his . We'll continue to follow make further recommendations based on his clinical status. Critical care time: 40 minutes. Time with Patient: Greater than 30
[2016-11-19] MEDS ORDERED: LORazepam 2 MG/ML SYRINGE IV PRN (13:09)
[2016-11-19] MEDS ORDERED: DRY MOUTH SPRAY 44.3 SPRAY/44.3 ML SPRAY MUCOUS MEM PRN (13:09)
[2016-11-19] MEDS ORDERED: ARTIFICIAL TEARS-HYPROMELLOSE DROPS 15 ML BTL BOTH EYES PRN (13:09)
[2016-11-19] MEDS ORDERED: SCOPOLAMINE 1.5MG/72HR PATCH TRANSDERM PRN (13:09)
[2016-11-19] MEDS ORDERED: MORPHINE SULFATE (100 MG/2 ML) 100 MG in SODIUM CHLORIDE 0.9% 100 ML IV SCH (13:15)
[2016-11-19] MEDS ORDERED: SODIUM CHLORIDE 0.9% 1,000 ML IV SCH (13:15)
[2016-11-19 13:19] VITALS: PULSE 112; RESP 29
[2016-11-19] MEDS ORDERED: ATROPINE OPHTH SOLN 1% 5ML BTL SUBLINGUAL PRN (13:55)
[2016-11-19] MEDS: MORPHINE SULFATE 4 MG/ML SYRINGE IV PRN ×3 (13:58→14:59)
--- NOTE | 2016-11-19 16:40 | PN ---
DATE OF SERVICE: 11/19/2016 This 71-year-old gentleman was admitted with acute non-ST segment elevation myocardial infarction, had cardiac catheterization and stenting. The patient had acute respiratory failure. The patient also had in-stent restenosis and restenting also. The patient also had significant CHF with ejection fraction 30 to 35%. The patient had difficulty in weaning and Dr. Hargrove saw the patient and recommended comfort measures and the family's is going with comfort measures as per the previous expressed wishes of the patient. Please refer to Dr. Hargrove and staff notes for further details. Currently the patient closely monitored. Past medical history reviewed. REVIEW OF SYSTEMS: Could not be taken. The is mechanically sedated and ventilated. Current medications are: 1. Artificial tears. 2. Isoptin. 3. Ativan. 4. Aspirin. 5. Lipitor. 6. Peridex. 7. Nimbex. 8. Lanoxin. 9. Diltiazem. 10. Lexapro. 11. Lasix. 12. Humalog. 13. Imdur. 14. Ativan. 15. Lopressor. 16. Levophed. 17. Protonix. 18. Effient. 19. Propofol. PHYSICAL EXAMINATION: The patient is mechanically sedated. Pulse is 120. Blood pressure ntd, respiratory rate 27, temperature normal, pulse ox 91% on mechanical ventilation. Vent settings noted. HEENT: Conjunctivae normal. Oral mucosa moist. NECK: No jugular venous distention. No carotid bruit. No lymph node enlargement. CARDIOVASCULAR: S1, S2 muffled. RESPIRATORY: Breath sounds diminished at the bases. Bilateral scattered rhonchi and crackles. ABDOMEN: Soft, obese nontender. No mass palpable. Legs: No edema. No swelling. CENTRAL NERVOUS SYSTEM: The patient is mechanically ventilated and sedated. LABS: WBC 10.9, hemoglobin is 12.7 and MCV 103.3. Accu-Cheks noted. Troponins 59. ASSESSMENT: 1. Acute coronary syndrome, possible acute non-ST elevation myocardial infarction status post cardiac catheterization and stenting of the left anterior descending with in-stent restenosis as well as restenting. 2. Acute hypoxic respiratory failure on mechanical ventilation. 3. Congestive heart failure acute exacerbation, with acute systolic dysfunction, ejection fraction 30 to 40%, possible ischemic cardiomyopathy. 4. Hypertension cardiogenic shock on pressor support. 5. Hypertension history. 6. History of cardiac arrhythmia. 7. History of atrial fibrillation with fast ventricular rate. 8. Gastroesophageal reflux disease history. 9. Increased MCV. 10. Thrombocytopenia. 11. Hyponatremia. 12. Increased random blood sugar. 13. History of gastrointestinal bleed. 14. History of anxiety, not otherwise specified. 15. History of remote history of nicotine dependence. 16. NO CODE, NO CPR, NO VENT. RECOMMENDATIONS AND DISCUSSION: In this 71-year-old gentleman presented with multiple complex medical issues, we will monitor the patient closely. Continue the current medications. Continue symptomatic treatment. The family has opted for comfort measures at this time. I recommend continue with current medications. Continue with weaning per pulmonary. The prognosis is extremely guarded. Discussed with the family and further recommendations to follow. MTDD
--- NOTE | 2016-11-20 13:11 | DS ---
DATE OF ADMISSION: 11/16/2016 DATE OF DISCHARGE: 11/19/2016 The preliminary cause of is acute myocardial infarction secondary to coronary atherosclerosis. Other diagnoses are: 1. Status post cardiac catheterization and stenting of the left anterior descending artery as well as restenosis as well as restenting with failure to wean. 2. Acute hypoxic respiratory failure on mechanical ventilation. 3. History of congestive heart failure acute exacerbation with acute systolic dysfunction, ejection fraction 30% to 35% with anteroseptal hypokinesis 4. Hypotension with cardiogenic shock on pressor support. 5. Atrial fibrillation with fast ventricular rate. 6. Hypertension. 7. History of cardiac catheterization. 8. History of gastroesophageal reflux disease. 9. Increased MCV. 10. Thrombocytopenia. 11. Hyponatremia. 12. Increased random blood sugar. 13. History of gastrointestinal bleed. 14. History of anxiety and depression. 15. Remote history nicotine dependence. 16. NO CODE, NO CARDIOPULMONARY RESUSCITATION, NO VENTILATOR. 17. Comfort measures. HISTORY OF PRESENT ILLNESS: This 71-year-old gentleman was admitted with acute non-ST elevation myocardial infarction and the patient underwent cardiac catheterization and stenting and instent thrombosis as well as restenting also. The patient had acute hypoxic respiratory failure, mechanically ventilated and sedated. Patient had failure of , discussed by Dr. Hargrove with multiple members of the family and as per the patient's wishes, the patient was deemed NO CODE, NO CPR, NO VENT, Comfort measures and the patient was extubated terminally and the patient subsequently because of the above mentioned multiple complex medical issues. The patient's condition was guarded throughout the hospital stay and please refer to the multiple consultations and Cardiology and Pulmonology note for further information. The prognosis was guarded. TONY
--- NOTE | 2016-11-20 17:45 | P.CONS ---
History of Present Illness - Reason for Consult Consult date: 11/18/16 Thrombocytopenia - History of Present Illness The patient is a 71-year-old gentleman, who had presented to [facility], with complains of mid chest pain that woke him up from a sleep around 2 AM in the morning. The pain lasted about 5-10 minutes and was associated with slight nausea. His blood pressure was quite high at the time. Around 9 PM the patient had recurrent the episode, and went into the ER. His EKG showed a sinus rhythm with right bundle-branch block and left axis deviation. Cardiac enzymes were negative. He was transferred here on 2016. He did have another episode of chest pain which was relieved with sublingual nitro. He therefore underwent a cardiac catheterization. He was found to have LAD disease and had a stent placed. Late in the day, he had recurrent chest pain and had a repeat catheterization which found an acute coronary stent which was treated with thrombectomy. During the procedure he he had significant hypertension and underwent acute respiratory failure. He was intubated and transferred to the ICU. History white count on admission was 102. He subsequently declined to 59 and is 61 today. Records from this admission, including cardiac catheterization procedure notes , MAR, and other consultants notes were reviewed. I could not find any documentation of the patient receiving heparin. Per my discussion with nursing , at the time of transfer to the ICU he did have a heparin lock IV but did not receive any heparin subsequently. There does not appear to be any history of recent hospitalization in the last 6 months to one year where he could have received heparin either. Previous records were reviewed. It appears the patient has been following with gastroenterology. The platelet count appears to be low chronically, and was 85 in 2013. He had an MRI in 08/28. The report was reviewed, indicating hepatocellular disease likely on the account of fatty infiltration with evidence of portal hypertension. Hepatitis profile in 06/26 and 08/28 was negative. Review of Systems This is not obtainable from the patient, as he is intubated. This is obtained from my discussion with nursing, and the patient's chart Constitutional: Denies chills, Denies fever Eyes: denies blurred vision, denies pain Ears: deny: decreased hearing, ear discharge, earache, tinnitus Ears, nose, mouth and throat: Denies headache, Denies sore throat Cardiovascular: Reports as per HPI, Reports chest pain, Reports shortness of breath Respiratory: Reports dyspnea Gastrointestinal: Reports as per HPI (History of for liver disease, likely due to fatty infiltration, per review of records) Genitourinary: Reports as per HPI (No specific complaints) Musculoskeletal: Denies myalgias Integumentary: Denies pruritus, Denies rash Neurological: Reports weakness Psychiatric: Denies anxiety, Denies depression Endocrine: Denies fatigue, Denies weight change Hematologic/Lymphatic: Reports as per HPI Past Medical History Past Medical History: GERD/Reflux, Hypertension Additional Past Medical History / Comment(s): heart arrhythmia History of Any Multi-Drug Resistant Organisms: None Reported Past Surgical History: Hernia Repair Additional Past Surgical History / Comment(s): carpal tunnel surg X2, arm surg on left arm, cataract surg, colon polyp Past Anesthesia/Blood Transfusion Reactions: No Reported Reaction Past Psychological History: Anxiety, Depression Smoking Status: Former smoker Past Alcohol Use History: None Reported Past Drug Use History: None Reported - Past Family History Father Additional Family Medical History / Comment(s): heart problems Mother Family Medical History: No Reported History Medications and Allergies Home Medications Medication Instructions Recorded Confirmed Type Aspirin [Adult Low Dose Aspirin EC] 81 mg PO DAILY 11/15/16 11/15/16 History Escitalopram [Lexapro] 20 mg PO DAILY 11/15/16 11/15/16 History Metoprolol Succinate [Toprol XL] 200 mg PO DAILY 11/15/16 11/15/16 History Omeprazole [PriLOSEC] 20 mg PO AC-BRKFST 11/15/16 11/15/16 History Potassium Chloride ER [K-Dur 20] 20 meq PO BID 11/15/16 11/15/16 History Tamsulosin HCl [Tamsulosin HCl] 0.4 mg PO DAILY 11/15/16 11/15/16 History amLODIPine BESYLATE [Amlodipine 10 mg PO DAILY 11/15/16 11/15/16 History Besylate] clonazePAM [Clonazepam] 0.25 mg PO TID PRN 11/15/16 11/15/16 History Allergies Allergy/AdvReac Type Severity Reaction Status Date / Time No Known Allergies Allergy Verified 11/15/16 08:22 Physical Exam Vitals: Vital Signs Temp Pulse Resp Pulse Ox 11/18/16 15:35 123 H 11/18/16 15:15 118 H 11/18/16 15:00 126 H 28 H 92 L 11/18/16 14:30 113 H 27 H 92 L 11/18/16 14:00 124 H 28 H 91 L 11/18/16 13:30 116 H 27 H 92 L 11/18/16 13:00 99.7 F H 124 H 27 H 93 L 11/18/16 12:30 127 H 27 H 92 L 11/18/16 12:00 123 H 26 H 93 L 11/18/16 11:46 126 H 11/18/16 11:30 124 H 24 90 L 11/18/16 11:26 121 H 11/18/16 11:00 122 H 26 H 92 L 11/18/16 10:30 124 H 26 H 93 L 11/18/16 10:00 114 H 27 H 93 L 11/18/16 09:30 123 H 23 93 L 11/18/16 09:00 116 H 24 93 L 11/18/16 08:30 124 H 25 H 93 L 11/18/16 08:00 98.6 F 134 H 36 H 93 L 11/18/16 07:31 126 H 11/18/16 07:30 128 H 26 H 91 L 11/18/16 07:23 125 H 11/18/16 07:00 135 H 26 H 91 L 11/18/16 06:30 125 H 27 H 91 L 11/18/16 06:00 134 H 27 H 91 L 11/18/16 05:30 124 H 27 H 91 L 11/18/16 05:00 129 H 28 H 92 L 11/18/16 04:30 130 H 27 H 93 L 11/18/16 04:00 124 H 26 H 93 L 11/18/16 03:30 119 H 26 H 92 L 11/18/16 03:00 124 H 27 H 92 L 11/18/16 02:30 135 H 30 H 91 L 11/18/16 02:00 147 H 33 H 90 L 11/18/16 01:30 148 H 34 H 93 L 11/18/16 01:00 92 22 94 L 11/18/16 00:30 86 22 95 11/18/16 00:00 98.3 F 89 22 95 11/17/16 23:36 84 11/17/16 23:30 83 22 95 11/17/16 23:25 84 11/17/16 23:00 82 24 94 L 11/17/16 22:30 84 22 95 11/17/16 22:07 84 23 95 11/17/16 22:00 85 28 H 94 L 11/17/16 21:30 87 29 H 94 L 11/17/16 21:00 85 28 H 95 11/17/16 20:30 84 25 H 96 11/17/16 20:00 98.3 F 80 22 96 11/17/16 19:52 80 11/17/16 19:30 80 28 H 96 11/17/16 19:00 79 28 H 96 11/17/16 18:00 77 24 97 Intake and Output 11/18/16 11/18/16 11/18/16 06:59 14:59 22:59 Intake Total 704.155 0075.037 117.05 Output Total 335 373 50 Balance 537.982 723.037 67.05 Intake: Intake, IV Titration 952.424 8726.037 117.05 Amount Amiodarone 450 mg In 132.5 249.609 Dextrose 5% in Water 250 ml @ 1 MG/MIN 34.53 mls/ hr IV .Q7H31M [facility] Rx#: [id number] Dextrose 5% in Water 1, 150 50 000 ml @ 50 mls/hr IV . Q20H [facility] Rx#:[id number] Dextrose 5% in Water 100 99.9 ml @ 618 mls/hr IV .Q10M [facility] with Amiodarone 150 mg Rx#:[id number] Dextrose 5% in Water 100 99.9 33.3 ml @ 618 mls/hr IV .Q10M [facility] with Amiodarone 150 mg Rx#:[id number] Diltiazem 125 mg In 1.667 Sodium Chloride 0.9% 100 ml @ 10 MG/HR 10 mls/hr IV .[id number] [facility] Rx#: [id number] Norepinephrine 4 mg In 12.065 52.578 Sodium Chloride 0.9% 250 ml @ Titrate IV .Q0M [facility] Rx#:[id number] Propofol 50 ml As IV .STK 198 54 -[facility] Rx#:[id number] Propofol 500 mg In Empty 173.75 190.05 33.75 Bag 1 bag @ Titrate IV . Q0M [facility] Rx#:[id number] Sodium Chloride 0.45% 1, 355 200 000 ml @ 50 mls/hr IV . Q20H [facility] Rx#:[id number] Output: Urine 335 373 50 Other: Voiding Method Indwelling Catheter # Voids 1 Weight 103.9 kg 103.9 kg Patient Weight 11/19/16 06:59 Weight 103.9 kg ABP, PAP, CO, CI - Last 8 Hours Arterial Blood Pressure 101/60 Arterial Blood Pressure 95/58 Arterial Blood Pressure 93/59 Arterial Blood Pressure 87/57 Arterial Blood Pressure 108/66 Arterial Blood Pressure 109/66 Arterial Blood Pressure 109/64 Arterial Blood Pressure 86/56 Arterial Blood Pressure 121/69 Arterial Blood Pressure 105/60 Arterial Blood Pressure 103/63 Arterial Blood Pressure 96/64 The patient is currently sedated, and intubated. - Constitutional General appearance: no acute distress - EENT Extraocular movements, and hearing cannot be tested due to the patient being on the vent Eyes: PERRLA - Neck Neck: no lymphadenopathy Thyroid: bilateral: normal size - Respiratory Respiratory: bilateral: CTA - Cardiovascular Rhythm: regular Heart sounds: normal: S1, S2 - Gastrointestinal General gastrointestinal: normal bowel sounds, soft - Integumentary Integumentary: normal - Neurologic Sedated on vent. Reflexes are symmetric in upper and lower extremities - Musculoskeletal Sedated on vent. No active joint swelling or edema Results CBC & Chem 7: 11/19/16 05:05 11/19/16 05:05 Labs: Abnormal Lab Results - Last 24 Hours (Table) 11/17/16 11/17/16 11/18/16 Range/Units 18:50 23:52 02:15 WBC 10.8 H (3.8-10.6) k/uL RBC 3.68 L (4.30-5.90) m/uL Hgb (13.0-17.5) gm/dL Hct 37.6 L (39.0-53.0) % MCV 102.4 H (80.0-100.0) fL MCH 35.9 H (25.0-35.0) pg Plt Count 59 L (150-450) k/uL Neutrophils # 9.1 H (1.3-7.7) k/uL Lymphocytes # 0.8 L (1.0-4.8) k/uL PT (9.0-12.0) sec ABG pCO2 (35-45) mmHg ABG pO2 (83-108) mmHg ABG O2 Saturation (94-97) % Chloride (98-107) mmol/L BUN (9-20) mg/dL Glucose (74-99) mg/dL POC Glucose (mg/dL) 151 H 168 H (75-99) mg/dL Calcium (8.4-10.2) mg/dL Phosphorus (2.5-4.5) mg/dL Total Creatine Kinase (55-170) U/L CK-MB (CK-2) (0.0-2.4) ng/mL Troponin I (0.000-0.034) ng/mL 11/18/16 11/18/16 11/18/16 Range/Units 02:15 02:15 04:32 WBC (3.8-10.6) k/uL RBC (4.30-5.90) m/uL Hgb (13.0-17.5) gm/dL Hct (39.0-53.0) % MCV (80.0-100.0) fL MCH (25.0-35.0) pg Plt Count (150-450) k/uL Neutrophils # (1.3-7.7) k/uL Lymphocytes # (1.0-4.8) k/uL PT (9.0-12.0) sec ABG pCO2 32 L (35-45) mmHg ABG pO2 64 L (83-108) mmHg ABG O2 Saturation 93.0 L (94-97) % Chloride 110 H (98-107) mmol/L BUN 27 H (9-20) mg/dL Glucose 167 H (74-99) mg/dL POC Glucose (mg/dL) (75-99) mg/dL Calcium 8.2 L (8.4-10.2) mg/dL Phosphorus 2.4 L (2.5-4.5) mg/dL Total Creatine Kinase 1479 H (55-170) U/L CK-MB (CK-2) 32.5 H* (0.0-2.4) ng/mL Troponin I (0.000-0.034) ng/mL 11/18/16 11/18/16 11/18/16 Range/Units 04:44 04:44 04:45 WBC 12.0 H (3.8-10.6) k/uL RBC 3.66 L (4.30-5.90) m/uL Hgb 12.8 L (13.0-17.5) gm/dL Hct 37.6 L (39.0-53.0) % MCV 102.9 H (80.0-100.0) fL MCH (25.0-35.0) pg Plt Count 61 L (150-450) k/uL Neutrophils # 10.0 H (1.3-7.7) k/uL Lymphocytes # (1.0-4.8) k/uL PT 12.7 H (9.0-12.0) sec ABG pCO2 (35-45) mmHg ABG pO2 (83-108) mmHg ABG O2 Saturation (94-97) % Chloride 111 H (98-107) mmol/L BUN 29 H (9-20) mg/dL Glucose 180 H (74-99) mg/dL POC Glucose (mg/dL) (75-99) mg/dL Calcium 8.2 L (8.4-10.2) mg/dL Phosphorus (2.5-4.5) mg/dL Total Creatine Kinase (55-170) U/L CK-MB (CK-2) (0.0-2.4) ng/mL Troponin I (0.000-0.034) ng/mL 11/18/16 11/18/16 Range/Units 11:28 12:10 WBC (3.8-10.6) k/uL RBC (4.30-5.90) m/uL Hgb (13.0-17.5) gm/dL Hct (39.0-53.0) % MCV (80.0-100.0) fL MCH (25.0-35.0) pg Plt Count (150-450) k/uL Neutrophils # (1.3-7.7) k/uL Lymphocytes # (1.0-4.8) k/uL PT (9.0-12.0) sec ABG pCO2 (35-45) mmHg ABG pO2 (83-108) mmHg ABG O2 Saturation (94-97) % Chloride (98-107) mmol/L BUN (9-20) mg/dL Glucose (74-99) mg/dL POC Glucose (mg/dL) 162 H (75-99) mg/dL Calcium (8.4-10.2) mg/dL Phosphorus (2.5-4.5) mg/dL Total Creatine Kinase (55-170) U/L CK-MB (CK-2) (0.0-2.4) ng/mL Troponin I 71.800 H* (0.000-0.034) ng/mL Chest x-ray: report reviewed MRI - abdomen: report reviewed Assessment and Plan (1) Thrombocytopenia Narrative/Plan: As noted in the HPI, per the review of records, the patient's thrombocytopenia is chronic. It has been ongoing for at least 2 years. Review of the patient's records, indicates that the patient has known hepatocellular disease and portal hypertension based on prior MRI. In this case, production of platelets is decreased, due to decreased thrombopoietin production from the liver. Peripheral destruction is also increased due to splenic sequestration, resulting from portal hypertension. No specific intervention is required, unless the platelets are not in a safe range for a specific circumstance. Currently, the patient's platelets are in a safe range. A count above 50,000 is quite safe for anticoagulation or antiplatelet therapy as well as most surgeries. HIT study was ordered previously, but this was canceled, based on the clinical picture, which makes HIT highly unlikely. Additional workup is not required. Some drop in platelets from baseline, in the current situation, as expected , due to increased consumption resulting from hypotension and SIRS. If platelets to decline below 50,000, the patient should be transfused. In that case, would expect them to recover to his usual baseline as his acute condition resolves the same was discussed with nursing Status: Acute
== END 2016-11-19 16:48 | disposition expired | DRG 246 ==
LOC: 3OBS 11-15 01:37 → 6SEL 11-16 11:27 → 6ICU 11-16 14:38 → OBSVTOIN 11-16 17:04 → 6ICU 11-16 17:05
PROVIDERS: ADMIT Hospitalist; ATTEND Hospitalist
PROC: 02C03ZZ Extirpation of Matter from Coronary Artery, One Artery, Percutaneous Approach (ICD-10-PCS; principal; 2016-11-16 09:30)
PROC: 027035Z Dilation of Coronary Artery, One Artery with Two Drug-eluting Intraluminal Devices, Percutaneous Approach (ICD-10-PCS; principal; 2016-11-16 09:30)
PROC: 0BH17EZ Insertion of Endotracheal Airway into Trachea, Via Natural or Artificial Opening (ICD-10-PCS; principal; 2016-11-16 09:30)
PROC: 5A1945Z Respiratory Ventilation, 24-96 Consecutive Hours (ICD-10-PCS; principal; 2016-11-16 09:30)
PROC: 4A023N7 Measurement of Cardiac Sampling and Pressure, Left Heart, Percutaneous Approach (ICD-10-PCS; principal; 2016-11-16 09:30)
PROC: B2111ZZ Fluoroscopy of Multiple Coronary Arteries using Low Osmolar Contrast (ICD-10-PCS; principal; 2016-11-16 09:30)
DX: I21.4 Non-ST elevation (NSTEMI) myocardial infarction (principal); I50.43 Acute on chronic combined systolic (congestive) and diastolic (congestive) heart failure; J96.01 Acute respiratory failure with hypoxia; R57.0 Cardiogenic shock; Z99.11 Dependence on respirator [ventilator] status; R65.10 Systemic inflammatory response syndrome (SIRS) of non-infectious origin without acute organ dysfunction; K76.6 Portal hypertension; I11.0 Hypertensive heart disease with heart failure; E87.0 Hyperosmolality and hypernatremia; E87.1 Hypo-osmolality and hyponatremia; J98.11 Atelectasis; T82.867A Thrombosis due to cardiac prosthetic devices, implants and grafts, initial encounter; D69.6 Thrombocytopenia, unspecified; I25.82 Chronic total occlusion of coronary artery; F32.9 Major depressive disorder, single episode, unspecified; F41.9 Anxiety disorder, unspecified; I25.110 Atherosclerotic heart disease of native coronary artery with unstable angina pectoris; I45.10 Unspecified right bundle-branch block; I48.91 Unspecified atrial fibrillation; K21.9 Gastro-esophageal reflux disease without esophagitis; Y83.1 Surgical operation with implant of artificial internal device as the cause of abnormal reaction of the patient, or of later complication, without mention of misadventure at the time of the procedure; Z79.82 Long term (current) use of aspirin; Z82.49 Family history of ischemic heart disease and other diseases of the circulatory system; Z86.010 Personal history of colon polyps; Z86.73 Personal history of transient ischemic attack (TIA), and cerebral infarction without residual deficits; Z87.891 Personal history of nicotine dependence; Z79.4 Long term (current) use of insulin
CPT/HCPCS: 31500; 71010; 80048; 81001; 82140; 82330; 82550; 82553; 82805; 83036; 83735; 84100; 84132; 84484; 85025; 85610; 85730; 86022; 87040; 87070; 87077; 87086; 87186; 87205; 93306; 93454; 93799; 94002; 94003; 94640; 96374; 96376